=== PATIENT | male | born 1990 | race Caucasian/White ===

== ENCOUNTER 2023-07-24 23:15 | Emergency (ER) | payer BC, SELFPAY ==
[2023-07-24 23:19] VITALS: BP 122/80; PULSE 85; RESP 18; TEMP 36.8; O2SAT 99; BMI 28.3
--- NOTE | 2023-07-24 23:39 | PC.NURSE ---
rounded on pt, no needs or concerns at this time.
--- NOTE | 2023-07-25 01:57 | PC.NURSE ---
Pt bilateral great toe flushed with saline, non adherent bandage and curlex applied. Pt educated on cleaning and bandaging.
[2023-07-25 01:58] VITALS: BP 128/82; PULSE 88; RESP 20; TEMP 36.8; O2SAT 98
--- NOTE | 2023-07-25 03:24 | HMH.EDGENADL ---
Discharge Plan Disposition Patient Disposition: Home, Self-Care Condition: Good Referrals Follow up/Referrals: Provider,Referral, MD [Primary Care Provider] - See instructions Activity Restrictions/Add. Instructions Additional Instructions/Restrictions: Please follow-up with your primary care provider. Please return to the emergency department if you develop any new or worsening symptoms or become concerned for your health. Please continue wound care as discussed. Clinical Impressions Clinical Impression: Paronychia due to ingrown nail Discharge ED Provider: Eder Lopez General Adult HPI General Chief complaint: PAIN Stated complaint: Ingrown toenail Time Seen by Provider: 07/24/23 23:43 Mode of Arrival: Ambulatory Source of Information: Patient Limitations: No Limitations Description of Symptoms (Recalled from ER Triage Doc. by RN): Pt presents with complaints of bilateral ingrown toenails x 1 week. History of Present Illness HPI narrative: 32-year-old male previously healthy presents with mild left great toe paronychia and right ingrown toenail with paronychia. Symptoms been ongoing in the right foot for a week, have been severe, worsening. Symptoms in the left foot are intermittent. Reports significant pain. Denies fever. [facility] Disclaimer: The information contained in this section may have been updated after the patient was seen, as this information can be updated by other users. Social History Smoking Status: Never smoker alcohol intake: never current occupational status: employed Travel in the last 8 weeks: None ROS Obtained: Yes All systems reviewed & no additional complaints except as documented Physical Exam General General appearance: alert and in no apparent distress Head Head exam: atraumatic and normocephalic Eye Eye exam: Present normal appearance, PERRL and EOMI ENT ENT exam: Present normal oropharynx and normal external ear exam Neck Neck exam: Present normal inspection and full ROM Chest Chest inspection: Present normal inspection and symmetric chest wall rise; Absent tenderness Respiratory Respiratory exam: Present normal lung sounds bilaterally; Absent respiratory distress Cardiovascular Cardiovascular exam: Present regular rate and normal rhythm Abdominal Exam Abdominal exam: Present soft; Absent distention, tenderness or guarding Extremities Exam Extremities exam: Present other (Right great toe: Lateral ingrown toenail with erythema and purulence noted. Left great toe: Mild medial paronychia); Absent edema or joint swelling Back Exam Back exam: Present normal inspection; Absent tenderness Neurological Exam Neurological exam: Present alert and oriented X3; Absent motor sensory deficit Psychiatric Psychiatric exam: Present normal affect and normal mood Skin Skin exam: Present warm, dry and normal color Lymphatic Lymphatic Findings: no adenopathy Medical Decision Making Medical Records Medical records reviewed: Yes I reviewed the patient's medical records. Ramos Inquiry Pt receiving controlled substance: No Ramos was queried for this patient: No Vital Signs: 07/24/23 23:19 07/25/23 01:58 Temperature 98.2 F 98.2 F Temperature Source Oral Oral Pulse Rate 88 Pulse Rate [Right] 85 Respiratory Rate 18 20 Blood Pressure 128/82 Blood Pressure [Right Arm] 122/80 Blood Pressure Mean [Right Arm] 94 Blood Pressure Source Automatic Cuff Blood Pressure Source [Right Arm] Automatic Cuff Blood Pressure Position Sitting Blood Pressure Position [Right Arm] Sitting 02 Sat by Pulse Oximetry 99 Oxygen Delivery Method Room Air Room Air Lab Data Lab results reviewed: Yes I reviewed the patient's lab results. Medical Decision Narrative: 32-year-old male previously healthy presents with bilateral paronychia, worse on the right. History was obtained via conversation with patient. On arrival, patient is [afebrile, hemodynamically stable] [alert, oriented x4,
== END 2023-07-25 01:58 | disposition home or self-care (01) ==
PROVIDERS: Emergency Provider Emergency Medicine
DX: L03.031 Cellulitis of right toe (principal); L03.032 Cellulitis of left toe; L60.0 Ingrowing nail
CPT/HCPCS: 99282

== ENCOUNTER 2024-01-23 12:16 | Emergency (ER) | payer BC, SELFPAY ==
[2024-01-23] VITALS (7 sets, daily range): BP systolic 112–155; BP diastolic 85–105; PULSE 62–78; RESP 16–20; TEMP 36.6–36.7; O2SAT 93–98; BMI 29.0
--- NOTE | 2024-01-23 12:39 | PC.NURSE ---
DR DOBBINS AT BEDSIDE
--- NOTE | 2024-01-23 12:40 | CT_ITS ---
PROCEDURE INFORMATION: Exam: CT Abdomen And Pelvis With Contrast Exam date and time: 01/23/2024 1:25 PM Age: 33 years old Clinical indication: Abdominal pain; Localized; Right lower quadrant (rlq); Additional info: Intermittant constipation, rlq abd pain TECHNIQUE: Imaging protocol: Computed tomography of the abdomen and pelvis with contrast. Radiation optimization: All CT scans at this facility use at least one of these dose optimization techniques: automated exposure control; mA and/or kV adjustment per patient size (includes targeted exams where dose is matched to clinical indication); or iterative reconstruction. Contrast material: ISOVUE; Contrast volume: 75 ml; Contrast route: IV; COMPARISON: No relevant prior studies available. FINDINGS: Liver: Mild fatty liver. Gallbladder and bile ducts: Normal. No calcified stones. No ductal dilation. Pancreas: Normal. No ductal dilation. Spleen: Normal. No splenomegaly. Adrenal glands: Normal. No mass. Kidneys and ureters: 4 mm stone in the mid to distal right ureter, with mild hydroureter and hydronephrosis. Left kidney unremarkable. Stomach and bowel: Unremarkable. No obstruction. No mucosal thickening. Appendix: No evidence of appendicitis. Intraperitoneal space: Unremarkable. No free air. No significant fluid collection. Vasculature: Retroaortic left renal vein. Lymph nodes: Unremarkable. No enlarged lymph nodes. Urinary bladder: Unremarkable as visualized. Reproductive: Unremarkable as visualized. Bones/joints: Unremarkable. No acute fracture. Soft tissues: Unremarkable. IMPRESSION: 1. 4 mm stone in the mid to distal right ureter, with mild hydroureter and hydronephrosis. 2. Mild fatty liver.
--- NOTE | 2024-01-23 12:42 | HMH.EDGENADL ---
Discharge Plan Disposition Patient Disposition: Home, Self-Care Prescriptions Prescriptions: New ondansetron 4 mg tablet,disintegrating 4 mg PO Q8H PRN (Reason: nausea and vomiting) 4 Days Qty: 12 0RF tamsulosin 0.4 mg capsule 0.4 mg PO DAILY Qty: 21 0RF oxycodone 5 mg tablet 5 mg PO TID PRN (Reason: pain (scale score 7-10)) Qty: 12 0RF Rx Instructions: Only take if Tylenol and ibuprofen are not working. Referrals Follow up/Referrals: Mark Zendejas MD [Primary Care Provider] - See instructions Activity Restrictions/Add. Instructions Additional Instructions/Restrictions: At this time it was felt you are safe to be discharged home. If new or worsening symptoms please do not hesitate to return the emergency department. Please take your medications as prescribed. Please continue to follow-up with urology as discussed. For pain please take Tylenol and ibuprofen both at the same time every 6 hours. For breakthrough pain control please take your oxycodone as prescribed. For your constipation please take 1 capful of MiraLAX every morning as the package directs, you can buy this [id number]. Clinical Impressions Clinical Impression: Ureterolithiasis, Constipation Instructions Patient Instructions: DI for Kidney Stones Discharge ED Provider: Zeus Marmolejo General Adult HPI General Chief complaint: Abdominal Pain Stated complaint: constipation for about a wk, recurring, abd pain Time Seen by Provider: 01/23/24 12:36 Mode of Arrival: Ambulatory Source of Information: Patient Limitations: No Limitations Description of Symptoms (Recalled from ER Triage Doc. by RN): Patient complaint of right sided abdomen pain with constipation. Patient reports he has had ongoing issues with his bowels. States his last bowel movement was approx 1 hour ago and it was mostly liquid. Patient also states his dog jumped and landed his front paws on his lower abdomen and has been hurting since then. History of Present Illness HPI narrative: Patient is a 33-year-old male with no pertinent past medical history presents emergency department for evaluation of constipation and abdominal pain. Patient states that he has had intermittent constipation over the last 2 months, worse over the last 2 weeks. Over the last 48 hours he has had worsening right lower quadrant abdominal pain causing her to present here for continued evaluation. He has significant straining with stooling, last partial bowel movement 11 AM this morning, nonbloody. No scrotal pain, no dysuria. Related Data Previous Rx's Medication Instructions Recorded ondansetron 4 mg disintegrating 4 mg PO Q8H PRN nausea and 01/23/24 tablet vomiting 4 days #12 tabs oxycodone 5 mg tablet 5 mg PO TID PRN pain (scale score 01/23/24 7-10) #12 tabs tamsulosin 0.4 mg capsule 0.4 mg PO DAILY relax muscle for 01/23/24 kidney stone #21 caps Allergies Allergy/AdvReac Type Severity Reaction Status Date / Time No Known Allergies Allergy Verified 01/23/24 12:30 [facility] Disclaimer: The information contained in this section may have been updated after the patient was seen, as this information can be updated by other users. Social History (Updated 07/25/23 @ 06:05 by Eder Lopez MD) Smoking Status: Never smoker alcohol intake: never current occupational status: employed Travel in the last 8 weeks: None ROS Obtained: Yes Systems reviewed as appropriate & no additional complaints except as documented Physical Exam General General appearance: alert and other (Appears uncomfortable in bed) Head Head exam: atraumatic and normocephalic Eye Eye exam: Present PERRL ENT ENT exam: Present mucous membranes moist Neck Neck exam: Present normal inspection Chest Chest inspection: Present normal inspection and symmetric chest wall rise Respiratory Respiratory exam: Present normal lung sounds bilaterally; Absent respiratory distress Cardiovascular Cardiovascular exam: Present regular rate and normal rhythm Abdominal Exam Abdominal exam: Present soft and tenderness (Diffuse) Extremities Exam Extremities exam: Present normal inspection Neurological Exam Neurological exam: Present alert Psychiatric Psychiatric exam: Present normal affect Skin Skin exam: Present warm and dry Medical Decision Making Ramos Inquiry Pt receiving controlled substance: No Vital Signs: 01/23/24 12:19 01/23/24 12:30 01/23/24 13:04 Temperature 97.9 F Temperature Source Oral Pulse Rate 78 76 Pulse Rate [Radial] 75 Respiratory Rate 16 20 20 Blood Pressure 150/96 H 142/93 H Blood Pressure [Right Arm] 155/105 H Blood Pressure Mean 112 105 Blood Pressure Mean [Right Arm] 121 Blood Pressure Source [Right Arm] Automatic Cuff Blood Pressure Position [Right Arm] Sitting 02 Sat by Pulse Oximetry 95 96 98 Oxygen Delivery Method Room Air 01/23/24 13:30 Temperature Temperature Source Pulse Rate 66 Pulse Rate [Radial] Respiratory Rate 18 Blood Pressure 136/89 Blood Pressure [Right Arm] Blood Pressure Mean 104 Blood Pressure Mean [Right Arm] Blood Pressure Source [Right Arm] Blood Pressure Position [Right Arm] 02 Sat by Pulse Oximetry 96 Oxygen Delivery Method Lab Data Lab Results 01/23/24 12:30: WBC 7.4, RBC 5.28, Hgb 15.3, Hct 45.7, MCV 86.5, MCH 29.0, MCHC 33.5, RDW 15.1, Plt Count 273, MPV 9.0, Neut % (Auto) 60.4, Lymph % (Auto) 28.3, [place] % (Auto) 6.8, Eos % (Auto) 2.8, Baso % (Auto) 1.7, Neut # (Auto) 4.5, Lymph # (Auto) 2.1, [place] # (Auto) 0.5, Eos # (Auto) 0.2, Baso # (Auto) 0.1, Sodium 141, Potassium 4.1, Chloride 107, Carbon Dioxide 26, Anion Gap 12.1, BUN 16, Creatinine 1.20, Estimated Creat Clear 101, Estimated GFR 70, Est GFR ( Amer) 84, Glucose 105 H, Lactate 0.8, Calcium 9.5, Total Bilirubin 1.0, AST 32, ALT 36, Alkaline Phosphatase 121, Total Protein 7.5, Albumin 4.4, Globulin 3.1, Albumin/Globulin Ratio 1.4, Lipase 70 01/23/24 12:59: SARS-CoV-2 (PCR) Not detected, Influenza A Untype (PCR) Not detected, Influenza Type B (PCR) Not detected 01/23/24 13:02: Urine Color Yellow, Urine Appearance Sl cloudy, Urine pH 6.0, Ur Specific [place] >= 1.030, Urine Protein 2+, Urine Glucose (UA) Negative, Urine Ketones Negative, Urine Blood 3+, Urine Nitrate Negative, Urine Bilirubin 1+ A, Urine Urobilinogen 0.2, Ur Leukocyte Esterase Negative, Urine RBC 20-50, Urine WBC Occasional, Ur Squamous Epith Cells Occasional, Urine Bacteria 2+ 01/23/24 12:30 01/23/24 12:30 Orders (Tests/Meds): ED MEDICATIONS Generic Name Dose Route Start Last Admin Trade Name Freq PRN Reason Stop Dose Admin Sodium Chloride 10 ml 01/23/24 13:26 01/23/24 13:26 Sodium Chloride 0.9% 10ml Syr (Rad Only) IV 02/22/24 13:25 10 ml NEEDED PRN Administration Maintain IV Site Discontinued Medications Generic Name Dose Route Start Last Admin Trade Name Freq PRN Reason Stop Dose Admin Acetaminophen 1,000 mg 01/23/24 12:40 01/23/24 13:18 Acetaminophen 1,000mg/100ml Vial IV 01/23/24 12:41 1,000 mg ONCE ONE Administration Iopamidol 75 ml 01/23/24 13:26 01/23/24 13:26 Iopamidol-370 (76%);100ml Bottle IV 01/23/24 13:27 75 ml ONCE ONE Administration Ketorolac Tromethamine 30 mg 01/23/24 12:40 01/23/24 13:18 Ketorolac 30mg/Ml Vial IV 01/23/24 12:41 30 mg ONCE ONE Administration Ondansetron HCl 4 mg 01/23/24 12:40 01/23/24 13:18 Ondansetron 4mg/2ml Vial IV 01/23/24 12:41 4 mg ONCE ONE Administration ORDERS Category Date Time Status CT abdomen pelvis w con Stat Cat Scan 01/23/24 12:40 Completed CBC w/Auto Diff [Complete Blood Count Auto Diff] Stat Lab 01/23/24 12:30 Completed CMP [Comprehensive Metabolic Panel] Stat Lab 01/23/24 12:30 Completed Lactic Acid Stat Lab 01/23/24 12:30 Completed Lipase Stat Lab 01/23/24 12:30 Completed Rapid PCR Covid and Flu A/B Stat Lab 01/23/24 12:59 Completed UA [Urinalysis and Microscopic] Stat Lab 01/23/24 13:02 Completed Urine Culture Stat Micro 01/23/24 13:02 Received Medical Decision Narrative: In summary patient is a 33-year-old male with past medical history described above presents emergency department for evaluation of constipation right lower quadrant abdominal pain. Patient has no history of abdominal surgery. Patient is hemodynamically stable nontoxic-appearing upon arrival, afebrile. Differential diagnosis includes constipation, mesenteric adenitis, appendicitis, urinary tract infection, among others. Workup will be conducted with hematologic labs, viral swab, urinalysis, CT abdomen pelvis IV contrast. Initial interventions include IV Tylenol, Toradol, Zofran, crystalloid bolus. Initial workup reviewed by me, hematologic labs are nonactionable, no ROSELINE, no leukocytosis, no critical electrolyte abnormalities. Urinalysis interpreted by me, not consistent with infection however does have significant hematuria. Viral swab is negative. CT imaging remarkable for a 4 mm stone in the mid to distal right ureter with mild hydroureter and hydronephrosis, left kidney unremarkable. Upon repeat evaluation patient had acceptable level of pain, these findings were relayed at bedside. Given the size of the stone I suspect he will pass with expectant management. I did inform patient that sometimes the stones can have prolonged migration and he does already have scheduled outpatient urologic appointment in the coming weeks. Patient will be discharged with oxycodone for breakthrough pain control, Zofran, tamsulosin and was given return precautions. Critical Care Critical Care Time Critical Care Time: No
[2024-01-23 12:52] LABS: Basophils # 0.1 K/mm3 (0-0.2); Basophils % 1.7 % (0.1-2.0); Eosinophils # 0.2 K/mm3 (0.0-0.4); Eosinophils % 2.8 % (0.1-12.0); Hematocrit 45.7 % (42.0-52.0); Hemoglobin 15.3 g/dL (14.1-18.0); Lymphocytes # 2.1 K/mm3 (0.7-4.5); Lymphocytes % 28.3 % (10-50); Mean Corpuscular HGB Conc 33.5 g/dL (31.8-35.4); Mean Corpuscular Volume 86.5 fl (80-94); Monocytes # 0.5 K/mm3 (0.1-1.0); Monocytes % 6.8 % (1.7-9.3); Neutrophils # 4.5 K/mm3 (1.8-7.8); Neutrophils % 60.4 % (37.0-80.0); Platelet Count 273 K/mm3 (142-424); Red Blood Count 5.28 M/mm3 (4.60-6.20); Red Cell Distribution Width 15.1 % (11.5-17.5); White Blood Count 7.4 K/mm3 (4.8-10.8)
[2024-01-23 12:57] LABS: Chloride 107 mmol/L (98-107)
[2024-01-23 12:58] LABS: Potassium 4.1 mmoL/L (3.5-5.1); Sodium 141 mmol/L (136-145)
[2024-01-23 13:01] LABS: Alanine Aminotransferase 36 U/L (12-78); Albumin Level 4.4 g/dl (3.5-5.0); Albumin/Globulin Ratio 1.4 (1.1-1.8); Alkaline Phosphatase 121 U/L (38-126); Anion Gap 12.1 mEq/L (5-15); Aspartate Amino Transferase 32 U/L (17-59); Blood Urea Nitrogen 16 mg/dl (9-20); Calcium 9.5 mg/dl (8.4-10.2); Carbon Dioxide 26 mmol/L (22.0-30.0); Creatinine Clearance Estimated 101 mL/min (50-200); Estimated Glomerular Filt Rate 70 ml/min (>60); GFR (African American) 84 ML/MIN (>60); Globulin 3.1 g/dL (1.3-3.2); Glucose 105 mg/dl (74-100); Lipase 70 U/L (23-300); Total Protein,Serum 7.5 g/dl (6.3-8.2)
[2024-01-23 13:02] LABS: Lactic Acid 0.8 mmol/L (0.7-2.1)
[2024-01-23 13:04] LABS: Microscopic, Urine URINE MICROSCOPIC (MICROSCOPIC)
[2024-01-23 13:04] LABS: Coronavirus 19, PCR Not Detected (NotDetected); Influenza A, PCR Not Detected (NotDetected); Influenza B, PCR Not Detected (NotDetected)
[2024-01-23 13:07] LABS: Appearance,Urine SL CLOUDY (Clear); Blood, Urine 3+ (Negative); Color,Urine YELLOW (Yellow); Glucose,Urine (UA) Negative (Negative); Ketones,Urine Negative (Negative); Leukocyte Esterase,Urine Negative (Negative); Nitrate,Urine Negative (Negative); Protein,Urine 2+ (Negative); Specific Gravity, Urine >= 1.030 (1.005-1.030); Urobilinogen,Urine 0.2 EU/dl (0.2)
[2024-01-23 13:15] LABS: Bilirubin,Urine 1+ (Negative)
[2024-01-23] MEDS: KETOROLAC 30MG/ML VIAL 30 MG IV (13:18)
[2024-01-23] MEDS: ONDANSETRON 4MG/2ML VIAL 4 MG IV (13:18)
[2024-01-23] MEDS: ACETAMINOPHEN 1,000MG/100ML VIAL 1000 MG IV (13:18)
[2024-01-23] MEDS: SODIUM CHLORIDE 0.9% 10ML SYR (RAD ONLY) 10 ML IV (13:26)
[2024-01-23] MEDS: IOPAMIDOL-370 (76%);100ML BOTTLE 75 ML IV (13:26)
[2024-01-23 13:28] LABS: RBC,Urine 20-50 #/hpf (0-3); WBC,Urine Occasional #/hpf (0-3)
[2024-01-23 13:29] LABS: Bacteria,Urine 2+ /lpf; Squamous Epithelial Cell,Urine Occasional #/hpf (0-5)
--- NOTE | 2024-01-23 14:18 | PC.NURSE ---
DR DOBBINS AT BEDSIDE TO REEVALUATE PT
== END 2024-01-23 14:40 | disposition home or self-care (01) ==
PROVIDERS: Emergency Provider Emergency Medicine; PCP Family Medicine
DX: N13.0 Hydronephrosis with ureteropelvic junction obstruction; R10.84 Generalized abdominal pain; N13.4 Hydroureter; K59.00 Constipation, unspecified; B96.89 Other specified bacterial agents as the cause of diseases classified elsewhere
CPT/HCPCS: 74177; 80053; 81001; 83605; 83690; 85025; 87086; 87636; 96361; 96374; 96375; 99285; J0131; J2405; Q9967

== ENCOUNTER 2024-03-07 08:57 | Outpatient (CLI) | payer BC, SELFPAY ==
--- NOTE | 2024-03-07 09:03 | XR_ITS ---
FINAL REPORT CLINICAL HISTORY: kidney stones FINDINGS: A single view of the abdomen was obtained. There is a nonobstructive bowel gas pattern. There are no abnormally dilated loops of small bowel. There are no abnormal calcifications. IMPRESSION: Nonobstructive bowel gas pattern. Reviewed, Interpreted and Dictated by Humza Gordon MD Transcribed by Melanie Davila Authenticated and [facility]
--- NOTE | 2024-03-07 09:03 | US_ITS ---
FINAL REPORT CLINICAL HISTORY: Renal stones FINDINGS: RENAL ULTRASOUND Ultrasound images of the kidneys were obtained. The right kidney measures 9.5 cm in length. It is normal echogenicity. There Is an echogenic focus in the superior pole of the right kidney consistent with a small stone. There is no hydronephrosis. The left kidney measures 10.0 cm in length. It is normal echogenicity. There are small echogenic foci in the left kidney consistent with small stones. There is no hydronephrosis. IMPRESSION: Tiny bilateral renal stones with no hydronephrosis. Reviewed, Interpreted and Dictated by Humza Gordon MD Transcribed by Melanie Davila Authenticated and [facility]
--- NOTE | 2024-03-07 09:03 | US_ITS ---
FINAL REPORT TECHNIQUE: Ultrasound images of the testicles were obtained bilaterally. Color Doppler images were obtained. CLINICAL HISTORY: Infertility. FINDINGS: The testicles are normal in size and echotexture bilaterally. Arterial flow is identified bilaterally. No intratesticular masses are identified. There is a small to moderate varicocele on the left. There are small hydroceles bilaterally. IMPRESSION: No evidence of testicular mass or torsion. Small to moderate left varicocele. Small bilateral hydroceles. Reviewed, Interpreted and Dictated by Humza Gordon MD Transcribed by Melanie Davila Authenticated and . [facility]
== END 2024-03-07 23:59 | disposition home or self-care (01) ==
LOC: RAD 08:59
PROVIDERS: PCP Family Medicine; Visit Provider Urology
DX: I86.1 Scrotal varices (principal); N20.1 Calculus of ureter
CPT/HCPCS: 74018; 76770; 76870

== ENCOUNTER 2024-03-11 19:17 | Emergency (ER) | payer BC, SELFPAY ==
[2024-03-11 19:18] VITALS: BP 133/84; PULSE 84; RESP 18; TEMP 36.9; O2SAT 98; BMI 29.9
--- NOTE | 2024-03-11 19:33 | CT_ITS ---
PROCEDURE INFORMATION: Exam: CT Abdomen And Pelvis Without Contrast Exam date and time: 03/11/2024 7:46 PM Age: 33 years old Clinical indication: Abdominal pain; Flank; Right; Additional info: R flank pain TECHNIQUE: Imaging protocol: Computed tomography of the abdomen and pelvis without contrast. Radiation optimization: All CT scans at this facility use at least one of these dose optimization techniques: automated exposure control; mA and/or kV adjustment per patient size (includes targeted exams where dose is matched to clinical indication); or iterative reconstruction. COMPARISON: CT ABDOMEN PELVIS W CON 01/23/2024 1:25 PM FINDINGS: Lungs: The visualized lung bases demonstrate no focal infiltrates. Liver: The liver appears within normal limits. Gallbladder and bile ducts: The gallbladder is normal. There is no evidence of biliary ductal dilation. Pancreas: The pancreas is normal. Spleen: The spleen is normal. Adrenal glands: The adrenal glands appear within normal limits. Kidneys and ureters: Left kidney normal. Moderate right renal hydronephrosis and hydroureter. This is due to a stone within the distal right ureter that measures 5 mm. This is located 3 cm above the UVJ. Stomach and bowel: The stomach appears within normal limits. No wall thickening or inflammatory change. Appendix: The appendix appears within normal limits. Intraperitoneal space: No free air. No evidence for focal fluid collection or ascites. No evidence for omental thickening. Vasculature: Unremarkable. No abdominal aortic aneurysm. Lymph nodes: Unremarkable. No pathologically enlarged lymph nodes are identified. Urinary bladder: The bladder appears within normal limits. No wall thickening. Reproductive: The prostate gland appears normal. Bones/joints: Unremarkable. No acute fracture. Soft tissues: Unremarkable. IMPRESSION: 1. Normal appearing appendix. 2. Moderate right renal hydronephrosis and hydroureter. This is due to a stone within the distal right ureter that measures 5 mm. This is located 3 cm above the UVJ.
[2024-03-11 19:38] LABS: Basophils # 0.2 K/mm3 (0-0.2); Eosinophils # 0.2 K/mm3 (0.0-0.4); Eosinophils % 1.5 % (0.1-12.0); Hematocrit 47.8 % (42.0-52.0); Lymphocytes # 1.6 K/mm3 (0.7-4.5); Lymphocytes % 10.4 % (10-50); Mean Corpuscular HGB Conc 33.5 g/dL (31.8-35.4); Mean Corpuscular Hemoglobin 29.4 pg (27.0-31.2); Mean Corpuscular Volume 87.6 fl (80-94); Mean Platelet Volume 9.4 fl (7.4-10.4); Monocytes # 0.7 K/mm3 (0.1-1.0); Monocytes % 4.5 % (1.7-9.3); Neutrophils # 12.9 K/mm3 (1.8-7.8); Neutrophils % 82.7 % (37.0-80.0); Platelet Count 278 K/mm3 (142-424); Red Blood Count 5.46 M/mm3 (4.60-6.20); Red Cell Distribution Width 15.3 % (11.5-17.5); White Blood Count 15.6 K/mm3 (4.8-10.8)
--- NOTE | 2024-03-11 19:39 | HMH.EDGENADL ---
Discharge Plan Disposition Patient Disposition: Home, Self-Care Condition: Good Prescriptions Prescriptions: New ondansetron HCl 4 mg tablet 4 mg PO Q8H PRN (Reason: nausea and vomiting) 4 Days Qty: 12 0RF oxycodone 5 mg tablet 5 mg PO Q8H PRN (Reason: pain) Qty: 12 0RF tamsulosin [Flomax] 0.4 mg capsule 0.4 mg PO HS Qty: 14 0RF ketorolac 10 mg tablet 10 mg PO Q8H PRN (Reason: pain) Qty: 20 0RF Referrals Follow up/Referrals: Mark Zendejas MD [Primary Care Provider] - See instructions Activity Restrictions/Add. Instructions Additional Instructions/Restrictions: You were evaluated in the emergency department today. Please warp picker your prescriptions and take as prescribed. Make sure that you are staying hydrated. Follow-up closely with your primary care provider as well as your urologist. Call them and notify them that you were seen here in the emergency department. Return to the emergency department for new or worsening symptoms, such as fever greater than 100.4 ?F, significant worsening of pain, intractable vomiting, or other concerns Clinical Impressions Clinical Impression: Ureterolithiasis Stand Alone Forms Stand Alone Forms: Work/School Release Instructions Patient Instructions: DI for Kidney Stones, DI for Acute Abdominal Pain Discharge ED Provider: Elizabeth Mendoza General Adult HPI General Chief complaint: Abdominal Pain Stated complaint: Right sided pain with vomiting Time Seen by Provider: 03/11/24 19:23 History of Present Illness HPI narrative: This patient is a 33-year-old male with history of kidney stones presenting to the emergency department for evaluation with concern for severe right flank pain radiating around to his right lower quadrant. He notes that it started around 1:00 AM and has been persistent since. He also notes that he had nausea and vomiting as a result of the pain. He tried taking his Flomax and ibuprofen at home that he had leftover from his last kidney stone, but he was not able to keep down. He denies any fevers, chills, changes bowel movements, or other concerns. Related Data Previous Rx's Medication Instructions Recorded ketorolac 10 mg tablet 10 mg PO Q8H PRN pain #20 tabs 03/11/24 ondansetron HCl 4 mg tablet 4 mg PO Q8H PRN nausea and 03/11/24 vomiting 4 days #12 tabs oxycodone 5 mg tablet 5 mg PO Q8H PRN pain #12 tabs 03/11/24 tamsulosin 0.4 mg capsule (Flomax) 0.4 mg PO HS #14 caps 03/11/24 Allergies Allergy/AdvReac Type Severity Reaction Status Date / Time No Known Allergies Allergy Verified 02/15/24 10:15 [facility] Disclaimer: The information contained in this section may have been updated after the patient was seen, as this information can be updated by other users. Social History Smoking Status: Former smoker alcohol intake: never current occupational status: employed Travel in the last 8 weeks: None ROS Obtained: Yes All systems reviewed & no additional complaints except as documented Physical Exam General General appearance: alert and in no apparent distress Head Head exam: atraumatic and normocephalic Eye Eye exam: Present normal appearance, PERRL and EOMI ENT ENT exam: Present normal exam, normal oropharynx, mucous membranes moist and normal external ear exam Neck Neck exam: Present normal inspection, full ROM and trachea midline; Absent tenderness Chest Chest inspection: Present normal inspection and symmetric chest wall rise; Absent tenderness Respiratory Respiratory exam: Present normal lung sounds bilaterally; Absent respiratory distress, wheezes, stridor or accessory muscle use Cardiovascular Cardiovascular exam: Present regular rate and normal rhythm Abdominal Exam Abdominal exam: Present soft and tenderness (R sided); Absent distention or guarding Extremities Exam Extremities exam: Present normal inspection, full ROM and normal capillary refill; Absent tenderness or edema Back Exam Back exam: Present full ROM and CVA tenderness (R) Neurological Exam Neurological exam: Present alert, oriented X3, CN II-XII intact and normal gait; Absent motor sensory deficit Psychiatric Psychiatric exam: Present normal affect and normal mood Skin Skin exam: Present warm and dry Medical Decision Making Medical Records Medical records reviewed: Yes I reviewed the patient's medical records. Ramos Inquiry Pt receiving controlled substance: Yes Ramos was queried for this patient: Yes Risks and benefits of using a controlled substance: were discussed with pt by me Vital Signs: 03/11/24 19:18 03/11/24 21:06 03/11/24 21:08 Temperature 98.4 F 98.3 F Temperature Source Oral Oral Pulse Rate 79 80 Pulse Rate [Left] 84 Respiratory Rate 18 18 18 Blood Pressure 118/68 118/68 Blood Pressure [Right Arm] 133/84 Blood Pressure Mean 84 Blood Pressure Mean [Right Arm] 100 02 Sat by Pulse Oximetry 98 95 Oxygen Delivery Method Room Air Room Air Room Air Lab Data Lab results reviewed: Yes I reviewed the patient's lab results. Lab Results 03/11/24 19:26: WBC 15.6 H, RBC 5.46, Hgb 16.0, Hct 47.8, MCV 87.6, MCH 29.4, MCHC 33.5, RDW 15.3, Plt Count 278, MPV 9.4, Neut % (Auto) 82.7 H, Lymph % (Auto) 10.4, [place] % (Auto) 4.5, Eos % (Auto) 1.5, Baso % (Auto) 1.0, Neut # (Auto) 12.9 H, Lymph # (Auto) 1.6, [place] # (Auto) 0.7, Eos # (Auto) 0.2, Baso # (Auto) 0.2, Total Counted 100, Neutrophils % (Manual) 94 H, Lymphocytes % (Manual) 6 L, Platelet Estimate Normal, RBC Morphology Normal, Sodium 141, Potassium 4.3, Chloride 107, Carbon Dioxide 25, Anion Gap 13.3, BUN 17, Creatinine 1.20, Estimated Creat Clear 101, Estimated GFR 70, Est GFR ( Amer) 84, Glucose 122 H, Calcium 10.2, Total Bilirubin 1.5 H, AST 40, ALT 50, Alkaline Phosphatase 112, Total Protein 7.8, Albumin 4.7, Globulin 3.1, Albumin/Globulin Ratio 1.5 03/11/24 20:01: Urine Color Yellow, Urine Appearance Clear, Urine pH 7.0, Ur Specific [place] 1.020, Urine Protein Trace, Urine Glucose (UA) Negative, Urine Ketones 1+, Urine Blood 3+, Urine Nitrate Negative, Urine Bilirubin 1+ A, Urine Urobilinogen 0.2, Ur Leukocyte Esterase Negative, Urine RBC 20-50, Urine WBC None, Ur Squamous Epith Cells Occasional, Urine Bacteria Trace 03/11/24 19:26 03/11/24 19:26 Orders (Tests/Meds): ED MEDICATIONS Discontinued Medications Generic Name Dose Route Start Last Admin Trade Name Freq PRN Reason Stop Dose Admin Acetaminophen 1,000 mg 03/11/24 19:33 03/11/24 19:49 Acetaminophen 1,000mg/100ml Vial IV 03/11/24 19:34 1,000 mg ONCE ONE Administration Lactated Ringer's 1,000 mls @ 999 mls/hr 03/11/24 19:33 03/11/24 19:49 Lactated Ringer's 1000 Ml Bag IV 03/11/24 20:33 999 mls/hr .Q1H1M ONE Administration Ketorolac Tromethamine 15 mg 03/11/24 19:33 03/11/24 19:50 Ketorolac 30mg/Ml Vial IV 03/11/24 19:34 15 mg ONCE ONE Administration Ondansetron HCl 4 mg 03/11/24 19:33 03/11/24 19:50 Ondansetron 4mg/2ml Vial IV 03/11/24 19:34 4 mg ONCE ONE Administration Tamsulosin HCl 0.4 mg 03/11/24 20:18 03/11/24 20:58 Tamsulosin 0.4mg Capsule PO 03/11/24 20:19 0.4 mg ONCE ONE Administration ORDERS Category Date Time Status CT abdomen pelvis wo con Stat Cat Scan 03/11/24 19:33 Completed Complete Blood Count Auto Diff Stat Lab 03/11/24 19:26 Completed Comprehensive Metabolic Panel Stat Lab 03/11/24 19:26 Completed Urinalysis and Microscopic Stat Lab 03/11/24 20:01 Completed Urine Culture Stat Micro 03/11/24 20:01 Received Medical Decision Narrative: In summary, this patient is a 33 year old male presenting to the Emergency Department for evaluation of R flank pain, nausea, and vomiting. Differential diagnoses considered include but are not limited to ureterolithiasis, pyelonephritis, cholelithiasis, appendicitis. Ruling out the most morbid conditions drove assessment. Workup included CBC, CMP, urinalysis, and CT abdomen and pelvis without IV contrast. He was given a bolus of IV fluids as well as IV Toradol, Zofran and acetaminophen for symptomatic improvement. I independently interpreted CT scan prior to the radiologist read and noted right-sided ureterolithiasis. Please see their read for final interpretation. Labs were obtained that demonstrated no acutely concerning abnormalities aside from mild leukocytosis, which could be leukemoid reaction from vomiting. Kidney function is normal. Urine is not overtly concerning for infection with negative nitrates and leukocyte esterase. On reassessment, patient had good improvement after administration interventions as above. After shared decision-making, he feels comfortable with discharge home with instructions for supportive management and expectant management of kidney stone that he could possibly pass. He was given instructions for close a patient follow-up with his urologist and primary care provider, prescriptions for Flomax, Toradol, Zofran, and oxycodone, and strict return precautions. He was discharged after all questions were answered Critical Care Critical Care Time Critical Care Time: No
[2024-03-11 19:43] LABS: Chloride 107 mmol/L (98-107); Potassium 4.3 mmoL/L (3.5-5.1); Sodium 141 mmol/L (136-145)
[2024-03-11 19:45] LABS: Blood Urea Nitrogen 17 mg/dl (9-20); Creatinine Clearance Estimated 101 mL/min (50-200); Estimated Glomerular Filt Rate 70 ml/min (>60); GFR (African American) 84 ML/MIN (>60)
[2024-03-11 19:46] LABS: Alanine Aminotransferase 50 U/L (12-78); Albumin Level 4.7 g/dl (3.5-5.0); Albumin/Globulin Ratio 1.5 (1.1-1.8); Alkaline Phosphatase 112 U/L (38-126); Anion Gap 13.3 mEq/L (5-15); Aspartate Amino Transferase 40 U/L (17-59); Bilirubin,Total 1.5 mg/dl (0.2-1.3); Calcium 10.2 mg/dl (8.4-10.2); Carbon Dioxide 25 mmol/L (22.0-30.0); Globulin 3.1 g/dL (1.3-3.2); Glucose 122 mg/dl (74-100); Total Protein,Serum 7.8 g/dl (6.3-8.2)
[2024-03-11] MEDS: LACTATED RINGERS 1000ML 1,000 ML 999 ML IV (19:49)
[2024-03-11] MEDS: ACETAMINOPHEN 1,000MG/100ML VIAL 1000 MG IV (19:49)
[2024-03-11] MEDS: ONDANSETRON 4MG/2ML VIAL 4 MG IV (19:50)
[2024-03-11] MEDS: KETOROLAC 30MG/ML VIAL 15 MG IV (19:50)
[2024-03-11 19:57] LABS: MANUAL DIFFERENTIAL MANUAL DIFFERENTIAL (MANUAL DIFF)
[2024-03-11 20:11] LABS: Microscopic, Urine URINE MICROSCOPIC (MICROSCOPIC)
[2024-03-11 20:13] LABS: Appearance,Urine CLEAR (Clear); Blood, Urine 3+ (Negative); Color,Urine YELLOW (Yellow); Glucose,Urine (UA) Negative (Negative); Ketones,Urine 1+ (Negative); Leukocyte Esterase,Urine Negative (Negative); Nitrate,Urine Negative (Negative); Protein,Urine TRACE (Negative); Urobilinogen,Urine 0.2 EU/dl (0.2)
[2024-03-11 20:13] LABS: Lymphocytes % 6 % (10-50); Neutrophils % 94 % (42-76); Platelet Estimate Normal; RBC Morphology Normal; Total Cells Counted 100
[2024-03-11 20:15] LABS: Bilirubin,Urine 1+ (Negative)
[2024-03-11 20:41] LABS: Bacteria,Urine Trace /lpf; RBC,Urine 20-50 #/hpf (0-3); Squamous Epithelial Cell,Urine Occasional #/hpf (0-5)
[2024-03-11] MEDS: TAMSULOSIN 0.4MG CAPSULE 0.400000000000000022 MG PO (20:58)
[2024-03-11 21:06] VITALS: BP 118/68; PULSE 79; RESP 18; TEMP 36.8; O2SAT 98
[2024-03-11 21:08] VITALS: BP 118/68; PULSE 80; RESP 18; O2SAT 95
--- NOTE | 2024-03-14 09:47 | PC.NURSE ---
urine culture results discussed with , contaminated, ntd
== END 2024-03-11 21:15 | disposition home or self-care (01) ==
PROVIDERS: Emergency Provider Emergency Medicine; PCP Family Medicine
DX: N13.0 Hydronephrosis with ureteropelvic junction obstruction (principal); N13.4 Hydroureter; B96.89 Other specified bacterial agents as the cause of diseases classified elsewhere; R10.31 Right lower quadrant pain; M54.59 Other low back pain; R11.2 Nausea with vomiting, unspecified; Z87.891 Personal history of nicotine dependence
CPT/HCPCS: 74176; 80053; 81001; 85007; 85025; 87086; 96361; 96374; 96375; 99285; J0131; J2405

== ENCOUNTER 2024-03-21 09:12 | Outpatient (CLI) | payer BC, SELFPAY | END 2024-03-21 23:59 | disposition home or self-care (01) | LOC: LAB.DROPOF 09:13 | PROVIDERS: PCP Family Medicine; Visit Provider Urology | DX: N20.1 Calculus of ureter (principal) ==

== ENCOUNTER 2024-03-22 11:00 | Outpatient (CLI) | payer BC, SELFPAY ==
--- NOTE | 2024-03-22 11:01 | US_ITS ---
FINAL REPORT CLINICAL HISTORY: Kidney stone COMPARISON: 03/07/[address] abdomen pelvis 03/11/2024 FINDINGS: RENAL ULTRASOUND Ultrasound images of the kidneys were obtained. Limited images of the liver parenchyma demonstrates normal echogenicity. The spleen is normal in size measuring 11.2 cm. The right kidney measures 8.7 cm in length. The left kidney measures 9.7 cm in length. There is no evidence of mass, hydronephrosis, or renal stone. IMPRESSION: Unremarkable renal ultrasound without evidence of stone. Reviewed, Interpreted and Dictated by Valerio Grimm III, MD Transcribed by Kate Benson Authenticated and . [facility]
== END 2024-03-22 23:59 | disposition home or self-care (01) ==
LOC: RAD 11:00
PROVIDERS: PCP Family Medicine; Visit Provider Urology
DX: N20.1 Calculus of ureter (principal)
CPT/HCPCS: 76770

== ENCOUNTER 2024-07-11 15:49 | Emergency (ER) | payer SELFPAY ==
[2024-07-11 17:09] VITALS: BP 137/85; PULSE 76; RESP 16; TEMP 36.7; O2SAT 96; BMI 27.9
[2024-07-11 17:15] LABS: Color,Urine Yellow (Yellow)
[2024-07-11 17:16] LABS: Apearance,Urine Clear (Clear); Bilirubin,Urine Negative (Negative); Blood, Urine Negative (Negative); Glucose,Urine (UA) Negative (Negative); Ketones,Urine Negative (Negative); Protein,Urine Negative (Negative); Specific Gravity, Urine 1.025 (1.005-1.030); UTC Leukocyte Esterase,Urine Negative (Negative); UTC Nitrate,Urine Negative (Negative); Urobilinogen,Urine 0.2 EU/dl (0.2)
--- NOTE | 2024-07-11 17:20 | EXP.UTC ---
Discharge Plan Disposition Patient Disposition: Home, Self-Care Condition: Good Prescriptions Prescriptions: No Action tamsulosin [Flomax] 0.4 mg capsule 0.4 mg PO HS 30 Days Qty: 30 0RF Referrals Follow up/Referrals: Mark Zendejas MD [Primary Care Provider] - See instructions Activity Restrictions/Add. Instructions Additional Instructions/Restrictions: Make sure to drink plenty of fluids Your Urine was sent for culture and should be back in the next couple days you may call back to the [facility] to get those results Follow up with your Family Doctor if symptoms persist to recheck your urine Straight to ER if anylife threateing sympotms Clinical Impressions Clinical Impression: Burning with urination Instructions Patient Instructions: DI for Dysuria -- Adult Print Language Print Language: [place] Discharge ED [place] [facility] [place] General Stated complaint: poss UTI Mode of Arrival: Ambulatory Source of Information: Patient Limitations: No Limitations Time Seen by Provider: 07/11/24 17:20 Description of Symptoms (Recalled from Triage Doc. by RN): Patient reports frequent urination and burning with urination. HEENT Symptoms (Recalled from RN notes): No Resp Symptoms (Recalled from RN notes): No Skin Symptoms (Recalled from RN notes): No MS Symptoms (Recalled from RN notes): No Functional Status (Recalled from RN notes): wnl History of Present Illness Provider Complaint: Patient states last week he had some burning with urination and frequency took OTC azo and it went away and started again yesterday States he was worried that he may have a UTI Related Data Previous Rx's ?Medication ?Instructions ?Recorded tamsulosin 0.4 mg capsule (Flomax) 0.4 mg PO HS 30 days #30 caps 05/03/24 Allergies Allergy/AdvReac Type Severity Reaction Status Date / Time No Known Allergies Allergy Verified 03/21/24 09:26 Worker's Comp Is this a Worker's Comp case?: No [facility] Disclaimer: The information contained in this section may have been updated after the patient was seen, as this information can be updated by other users. Social History Smoking Status: Former smoker alcohol intake: never current occupational status: employed Travel in the last 8 weeks: None ROS Obtained: Yes All systems reviewed & no additional complaints except as documented and Yes Systems reviewed as appropriate & no additional complaints except as documented Constitutional Constitutional: Reports system reviewed and no additional complaints, except as documented, Reports as per HPI, Denies body ache, Denies chills and Denies fever(s) ENT Ears, Nose, Mouth, and Throat: Reports system reviewed and no additional complaints, except as documented and Reports as per HPI Cardiovascular Cardiovascular: Reports system reviewed and no additional complaints, except as documented and Reports as per HPI Respiratory Respiratory: Reports system reviewed and no additional complaints, except as documented and Reports as per HPI Gastrointestinal Gastrointestingal: Reports system reviewed and no additional complaints, except as documented and as per HPI; Denies abdominal pain Genitourinary Male Genitourinary: Reports system reviewed and no additional complaints, except as documented, Reports as per HPI, Reports urinary frequency and Reports other (burning with urination) Physical Exam General General appearance: alert and in no apparent distress ENT ENT exam: Present mucous membranes moist Respiratory Respiratory exam: Present normal lung sounds bilaterally; Absent respiratory distress or wheezes Cardiovascular Cardiovascular exam: Present regular rate, normal rhythm and normal heart sounds Abdominal Exam Abdominal exam: Present soft and normal bowel sounds; Absent distention or tenderness Neurological Exam Neurological exam: Present alert, oriented X3 and normal gait Medical
[2024-07-11 17:48] VITALS: BP 137/85; PULSE 76; RESP 16; TEMP 36.7; O2SAT 96
--- NOTE | 2024-07-15 14:30 | PC.NURSE ---
URINE CULTURE REVIEWED BY Shay TAYLOR APRN. PATIENT IS NOT CURRENTLY ON ANTIBIOTICS. LEVAQUIN SENT IN TO PHARMACY PER Shay TAYLOR APRN WHO SPOKE WITH PATIENT ABOUT HIS CULTURE AND ANTIBIOTIC AT THIS TIME
== END 2024-07-11 17:49 | disposition home or self-care (01) ==
PROVIDERS: Emergency Provider Nurse Practitioner; PCP Family Medicine
DX: N39.0 Urinary tract infection, site not specified (principal); B95.2 Enterococcus as the cause of diseases classified elsewhere; R30.0 Dysuria; R35.0 Frequency of micturition
CPT/HCPCS: 81003; 87086; 87088; 87186; 99204; 99212; G0463

== ENCOUNTER 2025-10-01 00:09 | Emergency (ER) | payer BC, SELFPAY ==
[2025-10-01] VITALS (16 sets, daily range): BP systolic 107–126; BP diastolic 75–93; PULSE 69–120; RESP 16–18; TEMP 36.8; O2SAT 95–100; BMI 29.1
--- NOTE | 2025-10-01 00:18 | HMH.EDGENADL ---
Discharge Plan Disposition Patient Disposition: Home, Self-Care Condition: Good Prescriptions Prescriptions: New ondansetron 4 mg tablet,disintegrating 4 mg PO Q6H PRN (Reason: nausea and vomiting) Qty: 10 0RF No Action mupirocin 2 % ointment 1 applic topical BID 14 Days Qty: 22 1RF doxycycline hyclate 100 mg capsule 100 mg PO BID 14 Days Qty: 28 0RF Referrals Follow up/Referrals: Mark Zendejas MD [Primary Care Provider, Medical] - See instructions Activity Restrictions/Add. Instructions Additional Instructions/Restrictions: You were evaluated in the ER and are believed to be appropriate for discharge at this time. You need to increase your fluid intake including water, Gatorade, Pedialyte. Do not drink or eat red fluids or food. This will make it more difficult to determine if you have blood in your stool. Wash your hands thoroughly and avoid spreading your illness to others. Take the prescribed Zofran (ondansetron) if needed for nausea or vomiting. I recommend you eat a BRAT diet (bland diet). This includes boiled starches including potatoes, noodles, rice, oats (oatmeal) as well as crackers, bananas, soup, boiled vegetables. Avoid high-fat foods until your stool improves. Make an appointment with your primary care doctor for reevaluation in 2 to 3 days. Return to the ER with any new, worsening, or otherwise concerning symptoms. Clinical Impressions Clinical Impression: Astrovirus enteritis, Diarrhea, Dehydration Instructions Patient Instructions: Diarrhea, DI for Dehydration in Adults Print Language Print Language: Georgian Discharge ED Provider: Lida Moreau General Adult HPI General Chief complaint: Nausea/Vomiting/Diarrhea Stated complaint: dizziness, diarrhea, vomiting Time Seen by Provider: 10/01/25 00:16 History of Present Illness HPI narrative: 35-year-old male with no known chronic medical conditions, no daily medications, no known drug allergies presents to the ER with complaints of diarrhea, nausea, few episodes of emesis in the last 3 days. Diarrhea has been nonbloody, nonmelanotic, and he states he is now passing simply clear liquid. He states anything he takes by mouth he quickly passes by rectum. He states he has had limited urine output because he believes most of the volume is coming out his bottom. He has had a few episodes of emesis that are nonbloody, nonbilious. Denies chest pain or difficulty breathing. No headache or fevers. States he has had some lightheadedness with episodes of diarrhea and vomiting. No numbness, tingling, or weakness. Denies dysuria or hematuria. Concern for dehydration. No other complaints or concerns. States he took DayQuil/NyQuil Related Data Previous Rx's ?Medication ?Instructions ?Recorded mupirocin 2 % topical ointment 1 applic topical BID infection 14 04/06/25 days #22 grams doxycycline hyclate 100 mg capsule 100 mg PO BID infection 14 days 05/18/25 #28 caps ondansetron 4 mg disintegrating 4 mg PO Q6H PRN nausea and 10/01/25 tablet vomiting #10 tabs Allergies Allergy/AdvReac Type Severity Reaction Status Date / Time No Known Allergies Allergy Verified 05/18/25 15:46 [facility] Disclaimer: The information contained in this section may have been updated after the patient was seen, as this information can be updated by other users. Social History Smoking Status: Never smoker alcohol intake: never current occupational status: employed Travel in the last 8 weeks?: None Have you lived/traveled outside US in past 30 days?: No Contact w/someone who lives/traveled outside US past 30 days?: No Exposure to someone with infectious disease in past 14 days?: No Do you have a fever (greater than 100.4 F or 38 C)?: No Have you tested positive for COVID-19?: No Exposed to someone with COVID-19 in past 14 days?: No Do you have a sore throat?: No Do you have a cough?: No Do you have any weakness?: Yes Do you have any diarrhea?: Yes Are you experiencing any unusual bleeding?: No Do you have any muscle aches/pain?: No Do you have any abdominal pain?: Yes Are you experiencing loss of taste or smell?: No ROS Obtained: Yes Systems reviewed as appropriate & no additional complaints except as documented Per HPI Physical Exam General General appearance: alert and in no apparent distress Head Head exam: atraumatic and normocephalic Eye Eye exam: Present PERRL and EOMI ENT ENT exam: Present mucous membranes moist Neck Neck exam: Present normal inspection and full ROM Chest Chest inspection: Present symmetric chest wall rise Respiratory Respiratory exam: Present normal lung sounds bilaterally; Absent respiratory distress, wheezes or stridor Cardiovascular Cardiovascular exam: Present normal rhythm and tachycardia Abdominal Exam Abdominal exam: Present soft and tenderness (Mild diffuse but nonfocal); Absent distention, guarding, rebound or rigidity Extremities Exam Extremities exam: Present full ROM and normal capillary refill Back Exam Back exam: Absent CVA tenderness (R) or CVA tenderness (L) Neurological Exam Neurological exam: Present alert and oriented X3; Absent motor sensory deficit Psychiatric Psychiatric exam: Present normal affect and normal mood Skin Skin exam: Present warm and dry Medical Decision Making Medical Records Medical records reviewed: Yes I reviewed the patient's medical records. Screening: Per USPSTF and CDC recommendations, given the prevalence of disease in our region, it is our hospital?s policy to screen for HIV and viral Hepatitis for all patients aged 18 and over and those with ongoing risk factors. Ramos Inquiry Pt receiving controlled substance: No Vital Signs: 10/01/25 00:18 10/01/25 00:23 10/01/25 00:26 Temperature 98.3 F 98.3 F Temperature Source Oral Pulse Rate 120 H 119 H Pulse Rate [Right] 120 H Respiratory Rate 16 16 Blood Pressure 126/93 H Blood Pressure [Right Arm] 126/93 H Blood Pressure Mean Blood Pressure Mean [Right Arm] 104 02 Sat by Pulse Oximetry 100 100 97 Oxygen Delivery Method Room Air Room Air Room Air 10/01/25 00:30 10/01/25 00:30 10/01/25 00:37 Temperature Temperature Source Pulse Rate 111 H 102 H Pulse Rate [Right] Respiratory Rate 18 Blood Pressure 114/86 114/86 Blood Pressure [Right Arm] Blood Pressure Mean 95 Blood Pressure Mean [Right Arm] 02 Sat by Pulse Oximetry 96 97 Oxygen Delivery Method Room Air Room Air 10/01/25 00:45 10/01/25 01:00 10/01/25 01:00 Temperature Temperature Source Pulse Rate 100 H 91 H Pulse Rate [Right] Respiratory Rate Blood Pressure 111/75 Blood Pressure [Right Arm] Blood Pressure Mean 87 Blood Pressure Mean [Right Arm] 02 Sat by Pulse Oximetry 96 95 Oxygen Delivery Method Room Air Room Air 10/01/25 01:15 10/01/25 01:30 10/01/25 01:45 Temperature Temperature Source Pulse Rate 90 82 Pulse Rate [Right] Respiratory Rate Blood Pressure 118/79 Blood Pressure [Right Arm] Blood Pressure Mean 91 Blood Pressure Mean [Right Arm] 02 Sat by Pulse Oximetry 96 95 Oxygen Delivery Method Room Air Room Air 10/01/25 02:00 10/01/25 02:02 10/01/25 02:02 Temperature Temperature Source Pulse Rate 82 72 Pulse Rate [Right] Respiratory Rate Blood Pressure 107/81 L Blood Pressure [Right Arm] Blood Pressure Mean 87 Blood Pressure Mean [Right Arm] 02 Sat by Pulse Oximetry 96 97 Oxygen Delivery Method Room Air Room Air 10/01/25 02:30 10/01/25 03:00 10/01/25 03:30 Temperature Temperature Source Pulse Rate Pulse Rate [Right] Respiratory Rate Blood Pressure 112/78 108/85 L 111/79 Blood Pressure [Right Arm] Blood Pressure Mean 86 93 88 Blood Pressure Mean [Right Arm] 02 Sat by Pulse Oximetry Oxygen Delivery Method Lab Data Lab Results 10/01/25 00:30: WBC 7.2, RBC 6.14, Hgb 18.3 H, Hct 53.0 H, MCV 86.3, MCH 30.0, MCHC 34.7, RDW 12.9, Plt Count 292, MPV 11.3 H, Neut % (Auto) 62.0, Lymph % (Auto) 19.0, Logan % (Auto) 17.0 H, Eos % (Auto) 0.6, Baso % (Auto) 0.8, Neut # (Auto) 4.5, Lymph # (Auto) 1.4, Logan # (Auto) 1.2 H, Eos # (Auto) 0.0, Baso # (Auto) 0.1, Sodium 141, Potassium 3.4 L, Chloride 105, Carbon Dioxide 16 L, Anion Gap 23.4 H, BUN 23 H, Creatinine 1.70 H, Estimated Creat Clear 68, Estimated GFR 46 L, Est GFR ( Amer) 56 L, Glucose 160 H, Calcium 9.7, Total Bilirubin 0.7, AST 35, ALT 57, Alkaline Phosphatase 108, Total Protein 9.8 H D, Albumin 5.3 H, Globulin 4.5 H, Albumin/Globulin Ratio 1.2, HCV Ab ANISA w/Rflx PCR Qn Negative, HIV Ag/Ab Combo Qual Negative 10/01/25 02:10: Stl C. cayetanensis PCR Not detected, Stool Rotavirus (PCR) Not detected, Stl Adenov F 40/41 PCR Not detected, Stool Astrovirus (PCR) Detected A, Stool Campylobacter PCR Not detected, Stl C.difficile Tox PCR Not detected, Stool Cryptosporidium PCR Not detected, Stl E.coli Shiga Tox PCR Not detected, Stool E coli O157 PCR Not detected, Stl Enterotoxigenic E PCR Not detected, Stool EPEC (PCR) Not detected, Stool EAEC (PCR) Not detected, Stl E. histolytica PCR Not detected, Stool Giardia Lamblia PCR Not detected, Stool Salmonella PCR Not detected, Stool Sapovirus (PCR) Not detected, Stl P. shigelloides PCR Not detected, Stl Shigella/EIEC PCR Not detected, St Y.enterocolitica PCR Not detected, Stool Vibrio (PCR) Not detected, Stl Vibrio cholerae PCR Not detected, Stl Norovirus GI/GII PCR Not detected 10/01/25 02:35: Sodium 136, Potassium 3.3 L, Chloride 106, Carbon Dioxide 23, Anion Gap 10.3, BUN 21 H, Creatinine 1.30 H D, Estimated Creat Clear 89, Estimated GFR 63, Est GFR ( Amer) 76 D, Glucose 104 H D, Lactate 0.9, Calcium 8.8 10/01/25 00:30 10/01/25 02:35 Orders (Tests/Meds): ED MEDICATIONS Discontinued Medications Generic Name Dose Route Start Last Admin Trade Name Freq PRN Reason Stop Dose Admin Lactated Ringer's 1,000 mls @ 999 mls/hr 10/01/25 00:16 10/01/25 01:32 Lactated Ringer's 1000 Ml Bag IV 10/01/25 01:16 Infused .Q1H1M ONE Infusion Lactated Ringer's 1,000 mls @ 999 mls/hr 10/01/25 01:08 10/01/25 02:40 Lactated Ringer's 1000 Ml Bag IV 10/01/25 02:08 Infused .Q1H1M ONE Infusion Ondansetron HCl 4 mg 10/01/25 00:16 10/01/25 00:35 Ondansetron 4mg/2ml Vial IV 10/01/25 00:17 4 mg ONCE ONE Administration ORDERS Category Date Time Status BMP [Basic Metabolic Panel] Timed Lab 10/01/25 02:35 Completed CBC w/Auto Diff [Complete Blood Count Auto Diff] Stat Lab 10/01/25 00:30 Completed CMP [Comprehensive Metabolic Panel] Stat Lab 10/01/25 00:30 Completed Diarrhea 23 Panel, PCR Stat Lab 10/01/25 02:10 Completed HIV Combo Stat Lab 10/01/25 00:30 Completed Hepatitis C Ab Qual. W/ RFX Stat Lab 10/01/25 00:30 Completed Lactic Acid Timed Lab 10/01/25 02:35 Completed Medical Decision Narrative: In summary, this 35-year-old male with no chronic medical conditions, no daily medications, no known drug allergies presents to the emergency department today with nausea, vomiting, diarrhea, concern for dehydration. On initial evaluation patient is tachycardic but otherwise hemodynamically stable, afebrile, GCS 15, saturating 100% on room air with benign pulmonary exam, no peripheral edema, good capillary refill, abdominal exam with mild diffuse tenderness but no rebound or guarding, no peritonitic findings, nonfocal exam. Differential diagnosis includes but is not limited to viral syndrome, considered food poisoning, consider infectious diarrhea but patient is afebrile not having bloody or melanotic stools, considered electrolyte abnormality and dehydration, I do not have high suspicion for acute intra-abdominal pathology such as appendicitis or bowel obstruction since patient has a nonfocal exam and only very mild diffuse tenderness with no peritonitic findings. Based on these concerns, I ordered CBC, CMP. If the patient is able to produce a bowel movement here I will send the stool as well. Patient is receiving IV fluids and Zofran initially for treatment. Labs personally reviewed demonstrate no leukocytosis or anemia. Hemoglobin is actually 18.3 which is slightly elevated likely related to hemoconcentration from volume loss. Normal platelets. CMP initially demonstrated a creatinine of 1.7 with a previous baseline of 1.2. He is receiving 2 L of IV fluids for rehydration and will reevaluate with labs after IV rehydration since patient has no history of CKD. Patient did provide a diarrhea sample which was sent for study. It was positive for astrovirus. His sample was extremely watery and would bright, can be red in color. He states he has been drinking red electrolyte drinks which is consistent with this there does not appear to actually be blood in the stool sample and he states he has not had any bloody stool. He states his stool is exact same color as what he was drinking. Since patient is well-appearing and hemodynamically stable, no longer tachycardic, I believe he will be appropriate for discharge after repeat labs. Repeat labs demonstrate his creatinine is improved since receiving IV rehydration. This can be followed up outpatient. I recommended he follow-up with his PCP in 2 to 3 days. Lactic is normal. I do not believe he requires further workup or imaging. He is tolerating oral intake and appropriate for discharge. I prescribed Zofran for outpatient management of nausea. Patient was given instructions on symptomatic monitoring and including but not limited to the development of severe abdominal pain management, follow up instructions, and return precautions for the emergency department, new fevers, or bloody stool. Patient indicated understanding and was discharged in stable condition. Critical Care Critical Care Time Critical Care Time: No
[2025-10-01 00:34] LABS: Hematocrit 53.0 % (42.0-52.0); Immature Granulocytes % 0.6 %; Mean Corpuscular HGB Conc 34.7 g/dL (31.8-35.4); Mean Corpuscular Hemoglobin 30.0 pg (27.0-31.2); Mean Corpuscular Volume 86.3 fl (80-94); Nucleated Red Blood Cells % 0 %; Platelet Count 292 K/mm3 (142-424); Red Blood Count 6.14 M/mm3 (4.60-6.20); Red Cell Distribution Width-SD 40.1 fL; White Blood Count 7.2 K/mm3 (4.8-10.8)
[2025-10-01] MEDS: ONDANSETRON 4MG/2ML VIAL 4 MG IV (00:35)
[2025-10-01] MEDS: LACTATED RINGERS 1000ML 1,000 ML 999 ML IV ×2 (00:35→01:30)
[2025-10-01 00:39] LABS: Chloride 105 mmol/L (98-107)
[2025-10-01 00:40] LABS: Albumin Level 5.3 g/dl (3.5-5.0); Potassium 3.4 mmoL/L (3.5-5.1); Sodium 141 mmol/L (136-145)
[2025-10-01 00:41] LABS: Hemoglobin 18.3 g/dL (14.1-18.0)
[2025-10-01 00:42] LABS: Alanine Aminotransferase 57 U/L (12-78); Anion Gap 23.4 mEq/L (5-15); Aspartate Amino Transferase 35 U/L (17-59); Blood Urea Nitrogen 23 mg/dl (9-20); Carbon Dioxide 16 mmol/L (22.0-30.0); Creatinine Clearance Estimated 68 mL/min (50-200); Creatinine,Serum 1.70 mg/dl (0.66-1.25); Estimated Glomerular Filt Rate 46 ml/min (>60); GFR (African American) 56 ML/MIN (>60)
[2025-10-01 00:43] LABS: Albumin/Globulin Ratio 1.2 (1.1-1.8); Alkaline Phosphatase 108 U/L (38-126); Bilirubin,Total 0.7 mg/dl (0.2-1.3); Calcium 9.7 mg/dl (8.4-10.2); Globulin 4.5 g/dL (1.3-3.2); Glucose 160 mg/dl (74-100); Total Protein,Serum 9.8 g/dl (6.3-8.2)
[2025-10-01 01:58] LABS: Hepatitis C Ab Qual. W/ RFX NEGATIVE (Negative)
[2025-10-01 02:25] LABS: Adenovirus F 40/41, stool Not Detected (NotDetected); Clostridium Difficile A/B, PCR Not Detected (NotDetected); Cyclospora Cayetanesis Not Detected (NotDetected); Plesimonas Shigalloides, PCR Not Detected (NotDetected); Salmonella, PCR Not Detected (NotDetected); Shiga-like toxin E coli Not Detected (NotDetected); Shigella Enterovasive E coli Not Detected (NotDetected); Vibrio, PCR Not Detected (NotDetected); Yersinia Entercolitica, PCR Not Detected (NotDetected)
[2025-10-01 02:58] LABS: Chloride 106 mmol/L (98-107); Sodium 136 mmol/L (136-145)
[2025-10-01 02:59] LABS: Potassium 3.3 mmoL/L (3.5-5.1)
[2025-10-01 03:01] LABS: Blood Urea Nitrogen 21 mg/dl (9-20); Creatinine Clearance Estimated 89 mL/min (50-200); Creatinine,Serum 1.30 mg/dl (0.66-1.25); Estimated Glomerular Filt Rate 63 ml/min (>60); GFR (African American) 76 ML/MIN (>60)
[2025-10-01 03:02] LABS: Calcium 8.8 mg/dl (8.4-10.2); Carbon Dioxide 23 mmol/L (22.0-30.0); Glucose 104 mg/dl (74-100)
[2025-10-01 03:04] LABS: Anion Gap 10.3 mEq/L (5-15)
== END 2025-10-01 04:04 | disposition home or self-care (01) ==
PROVIDERS: Emergency Provider Emergency Medicine; PCP Family Medicine
DX: E86.0 Dehydration (principal); R19.7 Diarrhea, unspecified; A08.32 Astrovirus enteritis
CPT/HCPCS: 80048; 80053; 83605; 85025; 86803; 87389; 87507; 96361; 96374; 99284; 99285; J2405; J7120

== ENCOUNTER 2025-11-06 15:40 | Emergency (ER) | payer BC, SELFPAY ==
--- OUTSIDE RECORDS SUMMARY | 2024-06-21 04:15 | XMS_ITS ---
Author Organization Kitty Address [address] [facility] [address] [facility] [address] [id number] Care Team Providers Care [employer] Name Role Phone Cristiana Mark Unavailable [phone] REASON FOR VISIT 6 months Encounters Encounter Location Date Provider Diagnosis CLAUDINE-Mireille [address] [facility] [address] [id number] 06/21/2024 Mark Zendejas Plan Of Treatment No Information Progress Notes * JUAN ALVARADODOB:1990 ([age] yo M)Acc No.[id number]:06/21/2024 Progress Notes Patient: JUAN LINARES Provider: Rylan Zendejas M.D. :1990 A ge:33 Y S ex:Male Date:06/21/2024 Address:[address] [place] [address] [id number] Subjective: * Chief Complaints: * 1 . 6 months. * Medical History: Objective: * Vitals: Assessment: Plan: * Treatment: * Images: Billing Information: * Visit Code: * Procedure Codes: * Electronic signature of Laverne Zendejas MD on 11/06/2025 at 03:48 PM EST Sign off status: Pending * Provider: Rylan Zendejas M.D. Date: 0 06/21/2024 Generated for Tian zamora/Hannah/Staciaitting on: 01/07/2025 03:48 PM EST
--- OUTSIDE RECORDS SUMMARY | 2024-12-28 05:30 | XMS_ITS ---
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 Name Role Phone Mark Zendejas Unavailable [phone] Allergies No Known Allergies Results Component Value Reference Range Notes CBC Venipuncture (in house) Reviewed date:12/28/2024 07:23:21 PM Interpretation: Performing Lab: Notes/Report: wbc 7.1 3.5 - 10 lymph 33.6% 15 - 50 mid 6.7% 2 - 15 gran 59.7% 35 - 80 rbc 5.46 3.5 - 5.5 hgb 16.6 11.5 - 16.5 hct 48.1 35 - 55 mcv 88.2 75 - 100 mch 30.4 25 - 35 mchc 34.4 31 - 38 platlet 247 100 - 400 P-Comprehensive Metabolic Pa abi (CMP) Reviewed date:12/30/2024 09:24:46 AM Interpretation:Normal Performing Lab: Notes/Report: CLIA: [id number] Christian Lloyd MD, [employer] [address] [place] [address] , [address], [place] [address] Test performed by Arden Reed, [employer] Sodium 139 135-145 mmol/L Potassium 4.5 3.5-5.3 mmol/L Chloride 104 97-108 mmol/L CO2 23 22-32 mmol/L Glucose 88 65-99 mg/dL BUN 14 6-20 mg/dL Creatinine 1.06 0.70-1.30 mg/dL Calcium 10.1 8.6-10.4 mg/dL eGFR by Creatinine 94 >59 mL/min/1.73m2 Protein 7.5 6.0-8.3 g/dL Albumin 4.7 3.5-5.3 g/dL Alkaline Phosphatase 114 40-129 IU/L ALT (SGPT) 28 <5-55 IU/L AST (SGOT) 18 <5-46 IU/L Bilirubin, Total 0.7 <0.2-1.2 mg/dL A/G Ratio 1.7 1.1-2.5 I-X-Bxafkahy Protein (CRP) Reviewed date:12/30/2024 09:24:46 AM Interpretation:Normal Performing Lab: Notes/Report: Test performed by [facility] [address] , [address], [place] [address] Christian Lloyd MD, [employer] CLIA: [id number] C-Reactive Protein (CRP) 0.10 <0.50 mg/dL P-Sed Rate (ESR) Reviewed date:12/30/2024 09:24:46 AM Interpretation:Normal Performing Lab: Notes/Report: Test performed by [facility] [address] , [address], [place] [address] Christian Lloyd MD, [employer] CLIA: [id number] Erythrocyte Sedimentation Ra te (ESR), Automated 4 <16 mm/hr P-Lipid Panel Reviewed date:12/30/2024 09:24:46 AM Interpretation:Normal Performing Lab: Notes/Report: Test performed by [facility] [address] , [address], [place] [address] Christian Lloyd MD, [employer] CLIA: [id number] Cholesterol 171 <200 mg/dL Triglycerides 136 <150 mg/dL HDL Cholesterol 35 >39 mg/dL Cholesterol / HDL Ratio 4.89 0.00-4.99 Ratio Non-HDL Cholesterol 136 <130 mg/dL LDL Cholesterol (Calculation) 109 <130 mg/dL LDL Cholesterol Levels* Less than 100 mg/dL Optimal 100 to 129 mg/dL Near Optimal/ Above Optimal 130 to 159 mg/dL Borderline High 160 to 189 mg/dL High 190 mg/dL and above Very High * Categories as recommended by the 2004 ATPIII guidelines LDL/HDL Ratio 3.1 <3.3 Ratio LDL Cholesterol Patient History Test Date: 12/28/2024 LDL Results: 109 Units: mg/dL % Change: - P-TSH reflex to FT4 Reviewed date:12/30/2024 09:24:46 AM Interpretation:Normal Performing Lab: Notes/Report: Test performed by Arden Reed, [address] , [address], [place] [address] Christian Lloyd MD, [employer] CLIA: [id number] TSH reflex to FT4 1.11 0.43-5.25 mU/L REASON FOR VISIT ingrown toe nail and check up Medications Medication SIG (Take, Route, Frequency, Duration) Notes Start Date End Date Status Cephalexin 500 MG 1 capsule Orally truong ry 12 hrs; Duration: 10 day(s) 12/28/2024 Active Nasacort Allergy 24HR 55 MCG/ACT 1 spray in each nostril Nasally Once a day; Duration: 90 days 12/22/2023 Active Vital Signs Blood pressure systolic 100 mm Hg 12/28/19 25 Blood pressure diastolic 76 mm Hg 025 Heart Rate 114 /min 12/28/2024 Height 65 in 12/28/2024 Weight 173 lbs 12/28/2024 BMI 28.79 kg/m2 12/28/2024 Encounters Encounter Location Date Provider Diagnosis [facility] [address] [facility] [address] [place], [place] [phone] 12/28/2024 Mark Sparks Ingrown left big toenail L60.0 ; Frequent headaches R51.9 ; Screening, lipid Z13.220 and Diabetes mellitus screening Z13.1 Assessments Encounter Date Diagnosis (ICD Code) Assessment Notes Treatment Notes Treatment Clinical Notes Section Notes 12/28/2024 Ingrown left big toenail (ICD-10 - L60.0) 12/28/2024 Frequent headaches (ICD-10 - R51.9) 12/28/2024 Screening, lipid (ICD-10 - Z13.220) 12/28/2024 Diabetes mellitus screening (ICD-10 - Z13.1) Plan Of Treatment Medication Medication Name Sig Start Date Stop Date Notes Cephalexin 500 MG 1 capsule Orally truong ry 12 hrs; Duration: 10 day(s) 12/28/2024 Next Appt Details Follow Up: via phone to repo rt test results, Reason: Progress Notes * JUAN ALVARADODOB:1990 ([age] yo M)Acc No.[id number]:12/28/2024 Progress Notes Patient: JUAN LINARES Provider: Rylan Zendejas M.D. :1990 A ge:34 Y S ex:Male Date:12/28/2024 Address:[address] [place] [address] Subjective: * Chief Complaints: * 1 . Ingrown toe nail and check up. * HPI: D ermatology: 34 year old male presents with c/o Ingrown Toenail P t complains of ingrown toenail on lt great toe. Pt states that he has been dealing with this for a while and would like a referral to Podiatry. * ROS: D ERMATOLOGY: no R rochelle. n o H vamshi. G ASTROENTEROLOGY: no N ausea. n o V omiting. N EUROLOGY: Headache y es. U ROLOGY: no D ifficulty urinating. n o B lood in urine. * Medical History: A llergic rhinitis. * Surgical History: D enies Past Surgical History. * Hospitalization/Major Diagno stic Procedure: D enies Past Hospitalization. * Family History: F ather: alive 59 yrs. M other: alive 59 yrs. 1 brother(s) , 2 sister(s) . . * Social History: C URRENT TOBACCO USE: No . C affeine: yes, frequency:. Alcohol: yes. * Medications: T aking Nasacort Allergy 24HR 55 MCG/ACT Aerosol 1 spray in each nostril Nasally Once a day , Discontinued Xyzal Allergy 24HR 5 MG Tablet 1 tablet in the evening Orally Once a day , Medication List reviewed and reconciled with the patient * Allergies: N .K.D.A. Objective: * Vitals: W t:173, Temp:97.8, BP:100/76, HR:114, Nurse:willa, Ht: 65, BMI:28.79. * Examination: G eneral Examination: General Appearance: N AD. H eart: R SR. L ungs:?clear to auscultation. S kin: l ateral side of left great toenail with a small granuloma at the nail edge with some surrounding dull skin erythema, no drainage. P eripheral pulses: normal (2+) bilaterally. E xtremities: no leg edema. Assessment: * Assessment: 1. I ngrown left big toenail - L60.0 (Primary) 2 . F requent headaches - R51.9 3 . S creening, lipid - Z13.220 4 . D iabetes mellitus screening - Z13.1 Plan: * Treatment: Value Reference Range w bc 7.1 3.5 - 10 * l ymph 33.6% 15 - 50 * m id 6.7% 2 - 15 * g ran 59.7% 35 - 80 * r bc 5.46 3.5 - 5.5 * h gb 16.6 11.5 - 16.5 * h ct 48.1 35 - 55 * m cv 88.2 75 - 100 * m ch 30.4 25 - 35 * m chc 34.4 31 - 38 * p latlet 247 100 - 400 * Natalia Franco 12/28/2024 3:4 1:24 PM >Mark Zendejas T 12/28/2024 7:23:17 PM > 2.?Frequent headaches?LAB: P-Comprehensive Metabolic Panel (CMP) (Collection Date & Time - 12/28/2024 09:58 AM)?Normal* Value Reference Range A /G Ratio 1.7 1.1-2.5 - * A lbumin 4.7 3.5-5.3 - g/dL * A lkaline Phosphatase 114 40-129 - IU/L * A LT (SGPT) 28 <5-55 - IU/L * A ST (SGOT) 18 <5-46 - IU/L * B ilirubin, Total 0.7 <0.2-1.2 - mg/dL * B UN 14 6-20 - mg/dL * C alcium 10.1 8.6-10.4 - mg/dL * C hloride 104 97-108 - mmol/L * C O2 23 22-32 - mmol/L * C reatinine 1.06 0.70-1.30 - mg/dL * G lucose 88 65-99 - mg/dL * P otassium 4.5 3.5-5.3 - mmol/L * S odium 139 135-145 - mmol/L * P rotein 7.5 6.0-8.3 - g/dL * e GFR by Creatinine 94 >59 - mL/min/1.73m2 * Mark Zendejas 12/29/2024 8 :44:06 AM > Sent to to inform of normal results. Britney Hui 12/30/2024 9:24:20 AM > Pt informed ?LAB: E-H-Pipmmjab Protein (CRP) (Collection Date & Time - 12/28/2024 09:58 AM)?Normal* Value Reference Range C -Reactive Protein (CRP) 0.10 <0.50 - mg/dL * Mark Zendejas 12/29/2024 8 :44:06 AM > Sent to to inform of normal results. Britney Hui 12/30/2024 9:24:20 AM > Pt informed ?LAB: P-Sed Rate (ESR) (Collection Date & Time - 12/28/2024 09:58 AM)?Normal * Value Reference Range E rythrocyte Sedimentation Rate (ESR), Automated 4 <16 - mm/hr * Mark Zendejas 12/29/2024 8 :44:06 AM > Sent to to inform of normal results. Britney Hui 12/30/2024 9:24:20 AM > Pt informed ?LAB: P-TSH reflex to FT4 (Collection Date & Time - 12/28/2024 09:58 AM)? Normal* Value Reference Range T SH reflex to FT4 1.11 0.43-5.25 - mU/L * Gillian Zendejasian T 12/29/2024 8 :44:06 AM > Sent to to inform of normal results. Britney Hui 12/30/2024 9:24:20 AM > Pt informed 3.?Screening, lipid?LAB: P-Lipid Panel (Collection Date & Time - 12/28/2024 09:58 AM)?Normal* Value Reference Range C holesterol / HDL Ratio 4.89 0.00-4.99 - Ratio * C holesterol 171 <200 - mg/dL * H DL Cholesterol 35 L >39 - mg/dL * L DL Cholesterol (Calculation) 109 <130 - mg/d L * L DL/HDL Ratio 3.1 <3.3 - Ratio * N on-HDL Cholesterol 136 H <130 - mg/dL * T riglycerides 136 <150 - mg/dL * Gillian Zendejasian T 12/29/2024 8 :44:06 AM > Sent to to inform of normal results. Britney Hui 12/30/2024 9:24:20 AM > Pt informed 4.?Diabetes mellitus screening?LAB: P-Comprehensive Metabolic Panel (CMP) (Collection Date & Time - 12/28/2024 09:58 AM)?Normal* Value Reference Range A /G Ratio 1.7 1.1-2.5 - * A lbumin 4.7 3.5-5.3 - g/dL * A lkaline Phosphatase 114 40-129 - IU/L * A LT (SGPT) 28 <5-55 - IU/L * A ST (SGOT) 18 <5-46 - IU/L * B ilirubin, Total 0.7 <0.2-1.2 - mg/dL * B UN 14 6-20 - mg/dL * C alcium 10.1 8.6-10.4 - mg/dL * C hloride 104 97-108 - mmol/L * C O2 23 22-32 - mmol/L * C reatinine 1.06 0.70-1.30 - mg/dL * G lucose 88 65-99 - mg/dL * P otassium 4.5 3.5-5.3 - mmol/L * S odium 139 135-145 - mmol/L * P rotein 7.5 6.0-8.3 - g/dL * e GFR by Creatinine 94 >59 - mL/min/1.73m2 * Mark Zendejas 12/29/2024 8 :44:06 AM > Sent to [facility] to inform of normal results. Britney Hui 12/30/2024 9:24:20 AM > Pt informed * Procedure Codes: 8 5025 CBC WITH AUTO DIFF, 3074F SYST BP LT 130 MM HG, 3078F DIAST BP < 80 MM HG * Follow Up: v ia phone to report test results * Images: Billing Information: * Visit Code: 08105 Office Visit, Est Pt., Level 4. * Procedure Codes: 96847 CBC WITH AUTO DIFF. 3074F SYST BP LT 130 MM HG. 3078F DIAST BP < 80 MM HG. * Electronic signature of Laverne Zendejas MD on 11/06/2025 at 03:47 PM EST Sign off status: Pending * Provider: Rylan Zendejas M.D. Date: 0 12/28/2024 Generated for Tian zamora/Hannah/eTransmitting on: 1 01/07/2025 03:47 PM EST History and Physical Notes * HPI (History of Present Illness) Category Sub-Category Detail Notes Category Not es Dermatology Ingrown Toenail Pt complains of ingrown toenail on lt great toe. Pt states that he has been dealing with this for a while and would like a referral to Podiatry Examination Category Sub-Category Detail Notes Category Not es General Examination Heart: RSR Lungs: clear to auscultatio n Extremities: no leg edema General Appearance: NAD Skin: lateral side of left great toenail with a small granuloma at the nail edge with some surrounding dull skin erythema, no drainage Peripheral pulses: normal (2+) bilatera lly
--- OUTSIDE RECORDS SUMMARY | 2025-03-08 10:45 | XMS_ITS ---
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 Name Role Phone Cristiana Mark Unavailable [phone] Allergies No Known Allergies Reason For Referral Diagnosis 1 Ingrown left big toe nail (L60.0) Referral Organization [facility] Referring Provider First Name Mark Referring Provider Last Name Cristiana Referring Provider Speciality [facility] Referred Provider Suzette Collins Referred Provider Specialty Podiatry General Notes Ana Jaimes 2024 04:02:58 PM > faxed to [facility] Podiatry, Ana Jaimes 03/13/2025 09:46:26 AM > 04/06/2025 at 03:30pm Referral Priority Routine REASON FOR VISIT check up Medications Medication SIG (Take, Route, Frequency, Duration) Notes Start Date End Date Status Montelukast Sodium 10 MG 1 tablet Orally Once a day; Duration: 30 days 03/08/2025 Active Fluticasone Propionate 50 MCG/ACT 1 spray in each nostril Nasally Twice a day; Duration: 30 days 03/08/2025 Active Loratadine 10 MG 1 tablet Orally Once a day; Duration: 30 days 03/08/2025 Active Vital Signs Blood pressure systolic 110 mm Hg 03/08/20 25 Blood pressure diastolic 74 mm Hg 025 Heart Rate 106 /min 03/08/2025 Height 65 in 03/08/2025 Weight 179 lbs 03/08/2025 BMI 29.78 kg/m2 03/08/2025 Encounters Encounter Location Date Provider Diagnosis [facility] [address] [facility] [address] [place] [phone] 03/08/2025 Mark Zendejas Seasonal allergic rhinitis, unspecified trigger J30.2 ; Ingrown left big toenail L60.0 and BMI 29.0-29.9,adult Z68.29 Assessments Encounter Date Diagnosis (ICD Code) Assessment Notes Treatment Notes Treatment Clinical Notes Section Notes 03/08/2025 Seasonal allergic rhinitis, unspecified trigger (ICD-10 - J30.2) 03/08/2025 Ingrown left big toenail (ICD-10 - L60.0) 03/08/2025 BMI 29.0-29.9,adult (ICD-10 - Z68.29) Plan Of Treatment Medication Medication Name Sig Start Date Stop Date Notes Nasacort Allergy 24HR 55 MCG/ACT 1 spray in each nostril Nasally Once a day 12/22/2023 Montelukast Sodium 10 MG 1 tablet Orally Once a day; Duration: 30 days 03/08/2025 Fluticasone Propionate 50 MCG/ACT 1 spray in each nostril Nasally Twice a day; Duration: 30 days 03/08/2025 Loratadine 10 MG 1 tablet Orally Once a day; Duration: 30 days 03/08/2025 Referrals Referral Date Details 03/08/2025 03/08/2025, Suzette goncalves Next Appt Details Follow Up: via phone to repo rt progress, Reason: Progress Notes * JUAN ALVARADODOB:1990 ([age] yo M)Acc No.[id number]:03/08/2025 Progress Notes Patient: JUAN LINARES Provider: Rylan Zendejas M.D. :1990 A ge:34 Y S ex:Male Date:03/08/2025 Address:[address] [place] [address] Subjective: * Chief Complaints: * 1 . Check up. * HPI: A llergy/Asthma: 34 year old male presents with c/o shortness of breath P t complains of shortness of breath with exertion. 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 Pt states he is concerned he may have asthma. Pt states when breathing through his nose he only feels air on rt side . Pt states he is not congested or sick at this time . * ROS: D ERMATOLOGY: no R rochelle. n o H vamshi. G ASTROENTEROLOGY: no N ausea. n o V omiting. n o D iarrhea.? U ROLOGY: no D ifficulty urinating. n o B lood in urine. * Medical History: A llergic rhinitis. * Family History: F ather: alive 59 yrs. M other: alive 59 yrs. 1 brother(s) , 2 sister(s) . . * Social History: C URRENT TOBACCO USE: No . C affeine: yes, frequency:. Alcohol: yes. * Medications: T aking Nasacort Allergy 24HR 55 MCG/ACT Aerosol 1 spray in each nostril Nasally Once a day , Discontinued Cephalexin 500 MG Capsule 1 capsule Orally every 12 hrs , Medication List reviewed and reconciled with the patient * Allergies: N .K.D.A. Objective: * Vitals: W t: 179, Temp: 98.0, BP: 110/74, HR: 106, Nurse: willa, Ht: 65, BMI:29.78. * Examination: G eneral Examination: General Appearance: N AD. H eart: R SR. L ungs:?clear to auscultation. E xtremities: n o leg edema. Assessment: * Assessment: 1. S easonal allergic rhinitis, unspecified trigger - J30.2 (Primary) 2 . I ngrown left big toenail - L60.0 3 . B DE 29.0-29.9,adult - Z68.29 ? Plan: * Treatment: 2. I ngrown left big toenail Referral To:[facility] Collins Podiat[facility] Reason: * Procedure Codes: 3 074F SYST BP LT 130 MM HG, 3078F DIAST BP < 80 MM HG * Follow Up: v ia phone to report progress * Images: Billing Information: * Visit Code: 96294 Office Visit, Est Pt., Level 3. * Procedure Codes: 3074F SYST BP LT 130 MM HG. 3078F DIAST BP < 80 MM HG. * Electronic signature of Laverne Zendejas MD on 11/06/2025 at 03:47 PM EST Sign off status: Pending * Provider: Rylan Zendejas M.D. Date: 03/08/2025 Generated for Tian zamora/Faxing/eTransmitting on: 1 01/07/2025 03:47 PM EST History and Physical Notes * HPI (History of Present Illness) Category Sub-Category Detail Notes Category Not es Allergy/Asthma shortness of breath Pt complains of shortness of breath with exertion. 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 Pt states he is concerned he may have asthma. Pt states when breathing through his nose he only feels air on rt side . Pt states he is not congested or sick at this time Examination Category Sub-Category Detail Notes Category Not es General Examination Heart: RSR Lungs: clear to auscultatio n Extremities: no leg edema General Appearance: NAD Consultation Request Notes Referral Date Referring Provider Referred Provider Not es 03/08/2025 Mark Zendejas Sofie
--- OUTSIDE RECORDS SUMMARY | 2025-11-06 15:47 | XMS_ITS | Clinical Summary ---
Author Organization [facility] Address [address] [place], [place] [id number] Phone [email or web address] Care Team Providers Care Powder Coater Name Role Phone Provider, No Primary Care Provider Unavailabl e Allergies No known active allergies Medications Multiple Vitamin (multivitamin) capsule Take 1 capsule by mouth 1 (one) time each day. Active triamcinolone (NASACORT) 55 MCG/ACT nasal inhaler INSTILL 2 SPRAYS INTO EACH NOSTRIL TWICE DAILY 05/26/2022 Active levocetirizine (XYZAL) 5 MG tablet Take 5 mg by mouth 1 (one) time each day. 06/04/2022 Active escitalopram (LEXAPRO) 10 MG tablet Take 10 mg by mouth 1 (one) time each day. 06/04/2022 Active DICLOFENAC PO Take by mouth. Active benzonatate (TESSALON) 100 MG capsule Take 100 mg by mouth 3 (three) times a day if needed for cough. Do not crush or chew. 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 Overview (07/23/2022): no problems now Immunizations Immunization Administration Dates Next Due Tdap (ADACEL BOOSTRIX) (CVX-115) 08/19/2023 Social History Tobacco Use Types Packs/Day Years Used Date Smoking Tobacco: Never Smokeless Tobacco: Never Tobacco Cessation:Counseling Given: Not Answered Intimate Partner Violence Answer Date R ecorded Insults You Not on file 02/27/2021 Threatens You Not on file 02/27/2021 Screams at You Not on file 02/27/2021 Physically Hurt Not on file 02/27/2021 Intimate Partner Violence Score Not on file 02/27/2021 Depression Answer Date Recorded PHQ Total Score 0 08/19/2023 Stress Answer Date Recorded Stress in your Life 0 12/28/2020 Dealing with Stress Not on file 12/28/2020 Sex and Gender Information Value Date Recorded Sex Assigned at Not on file Legal Sex Male 12:17 PM CDT Gender Identity Not on file Sexual Orientation Not on file Last Filed Vital Signs Vital Sign Reading Time Taken Comments Blood Pressure 127/91 03/11/2024 5:31 PM EDT Pulse 66 03/11/2024 5:31 PM EDT Temperature 37.1 C (98.7 F) 08/19/2023 3:57 PM EDT Respiratory Rate 18 03/11/2024 5:31 PM EDT Oxygen Saturation 97% 03/11/2024 5:31 PM EDT Inhaled Oxygen Concentration - - Weight 78.7 kg (173 lb 8 oz) 08/19/2023 3:57 PM EDT Height 167 cm (5' 5.75 ) 08/19/2023 3:57 PM EDT Body Mass Index 28.22 08/19/2023 3:57 PM EDT Plan of Treatment Health Maintenance Due Date Last Done Comments Dental Cleaning/Exam 1990 HPV Immunization (1 - Male 3-dose series) 2005 Hepatitis B Immunization (1 of 3 - 19+ 3-dose series) 2009 Covid-19 Immunization (5 - season) 2025 09/16/2022, 10/26/2021, 03/07/2021, Additional history exists Influenza Immunization (#1) 2025 09/16/2022, 1 12/29/2020 Tetanus Diphtheria and Pertussis Immunization (2 - Td or Tdap) 08/19/2033 08/19/2023 HIB Immunization Aged Out No longer e ligible based on patient's age to complete this topic Hepatitis A Immunization Aged Out No longer eligible based on patient's age to complete this topic Pneumococcal Immunization Aged Out No longer eligible based on patient's age to complete this topic Polio Immunization Aged Out No longer eligible based on patient's age to complete this topic Varicella Immunization Aged Out No lo nger eligible based on patient's age to complete this topic Care Teams Powder Coater Relationship Specialty Start Date End Date Provider, No SURAJ BLOUNT [id number] PCP - General Thoracic Medicine Specialist 05/02/22
[2025-11-06 15:48] VITALS: BP 119/77; PULSE 90; RESP 16; TEMP 36.6; O2SAT 97; BMI 28.4
--- OUTSIDE RECORDS SUMMARY | 2025-11-06 15:48 | XMS_ITS | Patient Health Record ---
[facility] Address [address] [place] [phone] Care Team Providers Care Lawn Sprinkler Installer Name Role Phone Mark Zendejas Unavailable [phone] Allergies No Known Allergies Results Component Value [...] Interpretation:Normal Performing Lab: Notes/Report: Test performed by [facility] [address] [place] [address] , [address], [place] [address] Christian Lloyd MD, Stylist Assistant CLIA: [id number] Sodium 139 135-145 mmol/L Potassium 4.5 3.5-5.3 [...] 0.7 <0.2-1.2 mg/dL A/G Ratio 1.7 1.1-2.5 M-E-Zkvkivmb Protein (CRP) Reviewed date:12/30/2024 09:24:46 AM Interpretation:Normal Performing Lab: Notes/Report: Test performed by [facility] [address] , [address], [place] [address] Christian Lloyd MD, Stylist Assistant CLIA: [id number] C-Reactive Protein (CRP) 0.10 <0.50 mg/dL P-Sed Rate (ESR) Reviewed date:12/30/2024 09:24:46 AM Interpretation:Normal Performing Lab: Notes/Report: [facility] , [address], [place] [address] Christian Lloyd MD, Stylist Assistant CLIA: [id number] Erythrocyte Sedimentation Ra te (ESR), Automated 4 <16 mm/hr P-Lipid Panel Reviewed date:12/30/2024 09:24:46 AM Interpretation:Normal Performing Lab: Notes/Report: Test performed by [facility] , [address], [place] [address] Christian Lloyd MD, Stylist Assistant CLIA: [id number] Cholesterol 171 <200 mg/dL Triglycerides 136 <150 [...] Interpretation:Normal Performing Lab: Notes/Report: Test performed by [facility] , [address], [place] [address] Christian Lloyd MD, Stylist Assistant CLIA: [id number] TSH reflex to FT4 1.11 0.43-5.25 mU/L Reason For Referral Diagnosis 1 Ingrown left big toe nail (L60.0) [facility] Referring Provider First Name Mark Referring Provider Last Name Cristiana Referring Provider Speciality [facility] Referred Provider Suzette Collins Referred Provider Specialty Podiatry General Notes Ana Jaimes 2024 04:02:58 PM > faxed to [facility] Pod[facility]ry, Ana Jaimes 03/13/2025 09:46:26 AM > 04/06/2025 at 03:30pm Referral Priority Routine Medications Medication SIG (Take, Route, Frequency, Duration) Notes Start Date End Date Status Montelukast Sodium 10 MG 1 tablet Orally Once a day; Duration: 30 days 03/08/2025 Active Fluticasone Propionate 50 MCG/ACT 1 spray in each nostril Nasally Twice a day; Duration: 30 days 03/08/2025 Active Loratadine 10 MG 1 tablet Orally Once a day; Duration: 30 days 03/08/2025 Active Problems Problem Type SNOMED Code ICD Code Onset Dates Problem Status W/U Status Risk Notes Problem Seasonal allergic rhinitis (296111291) Seasonal allergic rhinitis, unspecified trigger (J30.2) Active confirmed Problem 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) Active confirmed Vital Signs Heart Rate 106 /min 03/08/2025 Blood pressure diastolic 74 mm Hg 03/08/2025 Height 65 in 03/08/2025 Blood pressure systolic 110 mm Hg 03/08/2025 Weight 179 lbs 03/08/2025 BMI 29.78 kg/m2 03/08/2025 Encounters Encounter Location Date Provider Diagnosis [facility] [facility] [address] [place] [id number] 12/28/2024 Mark Laclede Ingrown left big toenail L60.0 ; Frequent headaches R51.9 ; Screening, lipid Z13.220 and Diabetes mellitus screening Z13.1 [facility] [address] [place] [id number] 03/08/2025 Mark Laclede Seasonal allergic rhinitis, unspecified trigger J30.2 ; Ingrown left big toenail L60.0 and BMI 29.0-29.9,adult Z68.29 Assessments Encounter Date Diagnosis (ICD Code) Assessment Notes Treatment Notes Treatment Clinical Notes Section Notes 12/28/2024 Ingrown left big toenail (ICD-10 - L60.0) 12/28/2024 Frequent headaches (ICD-10 - R51.9) 03/08/2025 Ingrown left big toenail (ICD-10 - L60.0) 03/08/2025 Seasonal allergic rhinitis, unspecified trigger (ICD-10 - J30.2) 03/08/2025 BMI 29.0-29.9,adult (ICD-10 - Z68.29) 12/28/2024 Screening, lipid (ICD-10 - Z13.220) 12/28/2024 Diabetes mellitus screening (ICD-10 - Z13.1) Plan Of Treatment No Information Insurance Providers Payer Name Payer Address Payer Phone Subscriber Number Group Number Insured Name Patient Relationship to Insured Coverage Start Date Coverage End Date TORRES ALEXANDER [facility] [address] [place] [address] [id number] JUAN BROWNING Self - patient is the insured Medical (General) History Medical History History ICD Code allergic rhinitis Surgical History Surgery Date(Month/Year)
--- OUTSIDE RECORDS SUMMARY | 2025-11-06 15:48 | XMS_ITS | Clinical Summary ---
Author Organization [facility] y[facility] Address [address] [place] [address] Care Team Providers Care Manager Domestic Name Role Phone Provider, No Known Primary Care Provider Unavail able Allergies No known active allergies Medications traMADol (ULTRAM) 50 MG tablet Take 1 tablet by mouth Every 6 (Six) Hours As Needed for Moderate Pain or Severe Pain for up to 15 doses. 15 tablet 9 Active promethazine (PHENERGAN) 25 MG tabletIndications :Non-intractable vomiting with nausea, unspecified vomiting type Take 1 tablet by mouth Every 6 (Six) Hours As Needed for Nausea or Vomiting. 12 tablet 2 Active psyllium (METAMUCIL) 58.6 % powderIndications :Constipation, unspecified constipation type Take by mouth 2 (Two) Times a Day. 425 g 2 Active Social History Tobacco Use Types Packs/Day Years Used Date Smoking Tobacco: Never Smokeless Tobacco: Never Alcohol Use Standard Drinks/Week Comments Yes 0 (1 standard drink = 0.6 oz pur e alcohol) SOCIAL Abuse Screen Answer Date Recorded Unsafe at Home or Work/School Not on file Feels Threatened by Someone? Not on file 07/2023 Does Anyone Keep You from Co ntacting Others or Doint Things Outside the Home? Not on file 08/24/2023 Physical Sign of Abuse Present Not on file 1 Housing Stability Answer Date Recorded Current Living Arrangements Not on file 07/2023 Potentially Unsafe Housing Conditions Not on carly e 08/24/2023 Family and Community Support Answer Guicho e Recorded Help with Day-to-Day Activities Not on file 08/24/2023 Lonely or Isolated Not on file 08/24/2023 Employment Answer Date Recorded Do you want help finding or keeping work or a jesus b? Not on file 08/24/2023 Disabilities Answer Date Recorded Concentrating, Remembering, or Making Decisions Difficulty Not on file 08/24/2023 Doing Errands Independently Difficulty Not on fi le 08/24/2023 Education Answer Date Recorded Help with school or training? Not on file Preferred Language Not on file 08/24/2023 Sex and Gender Information Value Date Recorded Sex Assigned at Not on file Legal Sex Male 9:44 AM EDT Gender Identity Not on file Sexual Orientation Not on file Last Filed Vital Signs Vital Sign Reading Time Taken Comments Blood Pressure 115/76 01/16/2022 1:47 PM EST Pulse 77 01/16/2022 1:47 PM EST Temperature 36.8 C (98.2 F) 01/16/2022 1:47 PM EST Respiratory Rate 16 01/16/2022 1:47 PM EST Oxygen Saturation 98% 01/16/2022 1:47 PM EST Inhaled Oxygen Concentration - - Weight 74.8 kg (165 lb) 01/16/2022 1:47 PM EST Height 165.1 cm (5' 5 ) 01/16/2022 1:47 PM EST Body Mass Index 27.46 01/16/2022 1:47 PM EST Plan of Treatment Health Maintenance Due Date Last Done Comments TDAP/TD VACCINES (1 - Tdap) 2009 ANNUAL PHYSICAL 01/13/2018 HEPATITIS C SCREENING 01/13/2018 INFLUENZA VACCINE 06/16/2025 Pneumococcal Vaccine 0-49 Aged Out No longer eligible based on patient's age to complete this topic Insurance * Guarantor: Ryan Sandoval Account Type Relation to Patient Date of Phone Billing Address Personal/Family Self [address] [place] [address] [facility] PPO Care Teams Manager Domestic Relationship Specialty Start Date End Date Provider, [place] [address] PCP - General 09/30/17
--- NOTE | 2025-11-06 16:05 | ED_ITS ---
<Statement entered by Alyx Philippe DO - 11/07/25 00:53> I was consulted by the ABHISHEK, and we discussed the complexity of problems being addressed. I approve the treatment and management plan for this patient's care in the emergency department, thus performing a substantial portion of the medical decision making. Alyx Philippe DO Discharge Plan Disposition Patient Disposition: Home, Self-Care Condition: Good Prescriptions Prescriptions: New cefpodoxime 200 mg tablet 200 mg PO BID 10 Days Qty: 20 0RF Rx Instructions: must administer with a meal/food No Action mupirocin 2 % ointment 1 applic topical BID 14 Days Qty: 22 1RF doxycycline hyclate 100 mg capsule 100 mg PO BID 14 Days Qty: 28 0RF ondansetron 4 mg tablet,disintegrating 4 mg PO Q6H PRN (Reason: nausea and vomiting) Qty: 10 0RF Referrals Follow up/Referrals: Mark Zendejas MD [Primary Care Provider, Medical] - See instructions Activity Restrictions/Add. Instructions Additional Instructions/Restrictions: Please return to the emergency department with any worsening signs or symptoms. Please follow-up with your PCP in the upcoming days. Please take your antibiotic medication as prescribed with food. Clinical Impressions Clinical Impression: UTI (urinary tract infection) Instructions Patient Instructions: DI for Urinary Tract Infection (UTI) Print Language Print Language: Estonian Discharge ED Provider: Alyx Philippe General Adult HPI General Chief complaint: Urogenital-Male Stated complaint: Asthma symptoms,frequency with urination Time Seen by Provider: 11/06/25 15:45 Mode of Arrival: Ambulatory Source of Information: Patient Description of Symptoms (Recalled from ER Triage Doc. by RN): Patient states for the last couple of days his urine has been hot and that he is concerned his asthma has come back because several of his co-workers have had walking pneumonia Patient denies any current shortness of breath. History of Present Illness HPI narrative: 35-year-old male presents to the emergency department with a 2 to 3-day history of productive cough, exposure to coworkers who had walking pneumonia ., Subjective fever and chills, no recorded Tmax, congestion, waxing and waning shortness of breath, denies any shortness of breath currently, no chest pain, patient states he has a history of asthma , as a child , been utilizing [id number] inhaler , for symptomatic relief, is worried that he may have pneumonia , patient also endorses feeling the symptoms after taking some delta 8 Gummies on 11/04/2025. Patient denies any abdominal pain nausea vomiting, no constipation no diarrhea no melena hematochezia hematemesis or hemoptysis, does admit to some urinary symptomatology, describes his urine is hot , no overt dysuria, no overt hematuria, denies any new sexual contacts or risky sexual behaviors, denies any urethral discharge, patient has no other relevant past medical history takes no other medications daily at home. Patient denies any alcohol tobacco or other drug use. Initial triage vitals are unremarkable Please note that above description of symptoms, in this electronic medical record under categorization of recalled from ER triage doctor by RN are reflective of an initial nursing assessment, however, is not reflective of my full history and physical exam that was personally taken and clarified. Consequentially, this preceding description of symptoms, which may include the patient's categorized chief complaint in the EMR, do not reflect my personal clinical impression, and the ultimate description of history of present illness and patient stated complaints should be deferred to this section of the note. Unless stated otherwise or congruent with this section of the note, additional signs, symptoms, or incongruence should be interpreted as inaccurate with my clinical impression. Onset (ago): day(s) Related Data Previous Rx's ?Medication ?Instructions ?Recorded mupirocin 2 % topical ointment 1 applic topical BID in fection 14 04/06/25 days #22 grams doxycycline hyclate 100 mg capsule 100 mg PO BID infec tion 14 days 05/18/25 #28 caps ondansetron 4 mg disintegrating 4 mg PO Q6H PRN nausea and 10/01/25 tablet vomiting #10 tabs cefpodoxime 200 mg tablet 200 mg PO BID 10 days #20 ta bs 11/06/25 Allergies Allergy/AdvReac Type Severity Reaction Status Date / Time No Known Allergies Allergy Verified 05/18/25 15:46 [facility] Disclaimer: The information contained in this section may have been updated after the patient was seen, as this information can be updated by other users. Social History Smoking Status: Never smoker alcohol intake: never current occupational status: employed Travel in the last 8 weeks?: None Have you lived/traveled outside US in past 30 days?: No Contact w/someone who lives/traveled outside US past 30 days?: No Exposure to someone with infectious disease in past 14 days?: No Do you have a fever (greater than 100.4 F or 38 C)?: No Have you tested positive for COVID-19?: No Exposed to someone with COVID-19 in past 14 days?: No Do you have a sore throat?: No Do you have a cough?: No Do you have any weakness?: No Do you have any diarrhea?: No Are you experiencing any unusual bleeding?: No Do you have any muscle aches/pain?: No Do you have any abdominal pain?: No Are you experiencing loss of taste or smell?: No ROS Obtained: Yes All systems reviewed & no additional complaints except as documented Physical Exam General General appearance: alert and in no apparent distress Head Head exam: atraumatic and normocephalic Eye Eye exam: Present PERRL and EOMI ENT ENT exam: Present mucous membranes moist Neck Neck exam: Present normal inspection Chest Chest inspection: Present normal inspection and symmetric chest wall rise Respiratory Respiratory exam: Present normal lung sounds bilaterally; Absent respiratory distress, wheezes or stridor Cardiovascular Cardiovascular exam: Present regular rate and normal rhythm Abdominal Exam Abdominal exam: Present soft; Absent tenderness, guarding or rebound Extremities Exam Extremities exam: Present normal inspection Back Exam Back exam: Absent CVA tenderness (R) or CVA tenderness (L) Neurological Exam Neurological exam: Present alert and oriented X3 Psychiatric Psychiatric exam: Present normal affect Skin Skin exam: Present warm and dry Medical Decision Making Medical Records Medical records reviewed: Yes I reviewed the patient's medical records. Screening: Per USPSTF and CDC recommendations, given the prevalence of disease in our region, it is our hospital?s policy to screen for HIV and viral Hepatitis for all patients aged 18 and over and those with ongoing risk factors. Ramos Inquiry Pt receiving controlled substance: No Vital Signs: 11/06/25 15:48 Temperature 98 F Temperature Source Oral Pulse Rate [Right Brachial] 90 Respiratory Rate 16 Blood Pressure [Right Arm] 119/77 Blood Pressure Mean [Right Arm] 91 Blood Pressure Source [Right Arm] Automatic Cuff Blood Pressure Position [Right Arm] Sitting 02 Sat by Pulse Oximetry 97 Oxygen Delivery Method Room Air Lab Data Lab results reviewed: Yes I reviewed the patient's lab results. Lab Results 11/06/25 15:50: Urine Color Yellow, Urine Appearance Clear, Urine pH 7.5, Ur Specific Clayton 1.020, Urine Protein 1+ A, Urine Glucose (UA) Negative, Urine Ketones Negative, Urine Blood 1+ A, Urine Nitrate Positive A, Urine Bilirubin Negative, Urine Urobilinogen 0.2, Ur Leukocyte Esterase Trace, Urine RBC None, Urine WBC 20-50, Ur Squamous Epith Cells None, Urine Bacteria 2+, Urine Opiates Screen Negative, Urine Methadone Screen Negative, Ur Barbituates Screen Negative, Ur Phencyclidine Scrn Negative, Ur Amphetamines Screen Negative, U Benzodiazepines Scrn Negative, Urine Cocaine Screen Negative, U Marijuana (THC) Screen Positive H Orders (Tests/Meds): ORDERS Category Date Time Status XR chest portable Stat Exams 11/06/25 16:12 Completed Drug Screen,Urine Stat Lab 11/06/25 15:50 Completed Mini Respiratory Panel Stat Lab 11/06/25 16:20 Received Urinalysis and Microscopic Stat Lab 11/06/25 15:50 Completed Urine Chlam/Gono/Trich ([facility]) Stat Lab 11/06/25 15:50 Received Medical Decision Narrative: 35-year-old male presents to the emergency department with multiple symptomatology, see HPI for detailed past medical history, differential diagnose include but not limited to, viral URI, acute bronchitis, pneumonia, acute UTI, anxiety reaction, panic attack among others. I discussed this patient's case with the attending physician Dr. Philippe I offered full workup to include laboratory studies, patient did not this time would like to pursue less invasive testing, shared decision making utilized believe this appropriate as patient is hemodynamically stable at the bedside, has no shortness of breath or any other acute complaints at this time. Thus, will obtain UA, UDS, EKG chest x-ray mini respiratory panel. UA is notable for 1+ proteinuria, 1+ hematuria, positive nitrite, no RBCs, trace leukocyte esterase, 20-50 WBCs, no squamous epithelial cells, urine bacteria. Because of these urinalysis findings we will add on urine nucleic amplification, with trichomoniasis, gonorrhea chlamydia. UDS is positive for marijuana I reviewed the patient's chest x-ray along the corresponding radiologic report, no acute cardiopulmonary abnormality. I discussed the results with the patient the bedside, patient has remained hemodynamically stable throughout his time in the emergency department. Currently symptomatology free. Will treat the patient for urinary tract infection, once again ask if patient had any concerns for any STI, he adamantly denies at the bedside. Will treat the patient with Cefpodoxime 200 mg p.o. twice daily for 10 days, will call patient with results of his respiratory swabs as patient would like to be discharged home to self-care, shared decision making was utilized I believe this appropriate. Will call patient with any results of urine culture/gonorrhea chlamydia and other STI panel. Patient voiced unde rstanding and agreement with the current treatment plan/discharge plan. Strict ED return precautions given. Critical Care Critical Care Time Critical Care Time: No
--- NOTE | 2025-11-06 16:12 | XR_ITS ---
PROCEDURE INFORMATION: Exam: XR Chest Exam date and time: 11/06/2025 4:15 PM Age: 35 years old Clinical indication: Cough and shortness of breath; Additional info: SOA, cough TECHNIQUE: Imaging protocol: Radiologic exam of the chest. Views: 1 view. COMPARISON: CT ABDOMEN PELVIS WO CON 03/11/2024 7:46 PM FINDINGS: Lungs: The lungs are clear. Pleural spaces: No pneumothorax or pleural effusion. Heart/Mediastinum: Cardiomediastinal silhouette is unremarkable. Diaphragm: Mildly elevated right hemidiaphragm. Mild eventration of the bilateral diaphragms. Bones/joints: No acute osseous or soft tissue abnormality. IMPRESSION: No acute cardiopulmonary abnormality.
[2025-11-06 16:18] LABS: Microscopic, Urine URINE MICROSCOPIC (MICROSCOPIC)
[2025-11-06 16:24] LABS: Bilirubin,Urine Negative (Negative); Color,Urine YELLOW (Yellow); Glucose,Urine (UA) Negative (Negative); Ketones,Urine Negative (Negative); Leukocyte Esterase,Urine TRACE (Negative); PH,Urine 7.5 (5.0-8.5); Protein,Urine 1+ (Negative); Specific Gravity, Urine 1.020 (1.005-1.030); Urobilinogen,Urine 0.2 EU/dl (0.2)
[2025-11-06 16:26] LABS: Coronavirus 19, PCR Not Detected (NotDetected); Influenza A, PCR Not Detected (NotDetected); Influenza B, PCR Not Detected (NotDetected)
--- NOTE | 2025-11-06 16:30 | ECG_ITS ---
APPROVED REPORT Exam: Resting ECG HR:79 bpm ECG Measurements Heart Rate 79 AXES NC 176 P 49 QRSd 85 QRS 62 QT 321 T 11 QTc 355 Conclusion Normal sinus rhythm without acute ST or T wave changes concerning for ischemia Electronically signed by : Alyx Philippe, 11/08/2025 01:02:09
[2025-11-06 16:36] LABS: Bacteria,Urine 2+ /lpf; WBC,Urine 20-50 #/hpf (0-3)
[2025-11-06 16:46] LABS: Amphetamine/Metha Screen,Urine Negative ng/ml (<1000); Barbiturates Screen,Urine Negative ng/ml (<200)
[2025-11-06 16:47] LABS: Benzodiazepines Screen,Urine Negative ng/ml (<200)
[2025-11-06 16:51] LABS: Methadone Screen,Urine Negative ng/ml (<300)
[2025-11-06 16:52] LABS: Opiate Screen,Urine Negative ng/ml (<300)
[2025-11-06 16:53] LABS: Phencyclidine Screen,Urine Negative ng/ml (<25)
[2025-11-06 17:00] VITALS: BP 107/76; PULSE 78; O2SAT 97
[2025-11-06 17:34] VITALS: BP 107/76; PULSE 78; RESP 16; TEMP 36.6; O2SAT 97
== END 2025-11-06 17:35 | disposition home or self-care (01) ==
PROVIDERS: Physician Assistant; Emergency Provider Student in an Organized Health Care Education/Training Program; PCP Family Medicine
DX: N39.0 Urinary tract infection, site not specified (principal); R05.9 Cough, unspecified; R50.9 Fever, unspecified; R09.81 Nasal congestion
CPT/HCPCS: 71045; 80307; 81001; 87491; 87591; 87631; 87661; 93005; 99283; 99284